=== PATIENT | male | born 1940 | race Hispanic/Latino ===

== ENCOUNTER 2016-06-26 19:17 | Inpatient (IN) | payer OTHER ==
[~2016-06-26] VITALS: Ht 170.2 cm; Wt 63.0 kg
[~2016-06-26 19:17] MED LIST: HYDROCHLOROTHIA25 MG PO; LOSARTAN POTASS25 MG PO; NORCO 5/3251 TABLET PO
[2016-06-26 19:41] LABS: HEMATOCRIT 34.2 % (38.0-50.0); MCV 90.7 FL (86-99); MEAN PLAT.VOLUME 8.3 uM^3 (9.0-12.4); PLATELET COUNT 300 K/uL (156-360); RBC DIS.WIDTH-CV 12.9 % (11.8-14.6); RBC DIS.WIDTH-SD 41.8 % (39-53); RED BLOOD COUNT 3.77 M/uL (4.00-5.50); WHITE BLOOD COUNT 9.9 K/uL (4.1-10.2)
[2016-06-26 19:43] LABS: EOSINOPHIL (%) 7.4 % (0-5); EOSINOPHIL COUNT 0.7 K/uL (0-0.3); IMMATURE GRANULOCYTE (%) 0.2 % (0.0-0.7); IMMATURE GRANULOCYTE COUNT 0.2 K/uL; LYMPHOCYTE COUNT 3.5 K/uL (1.0-2.8); MONOCYTE (%) 6.8 % (3-12); MONOCYTE COUNT 0.7 K/uL (0-0.8); NEUTROPHIL (%) 49.5 % (45-76); NEUTROPHIL COUNT 4.9 K/uL (1.8-6.4)
[2016-06-26 19:49] LABS: AMYLASE 263 IU/L (1-118); CHLORIDE 100 mEq/L (99-109); POTASSIUM 3.7 mEq/L (3.7-5.4); SODIUM 137 mEq/L (136-147)
[2016-06-26 19:51] LABS: GLUCOSE 112 mg/dL (70-99)
[2016-06-26 19:52] LABS: PROTHROMBIN TIME 10.5 (9.2-11.2); PTT 32.2 (25-32)
[2016-06-26 19:52] LABS: ANION GAP 12 MEQ/L (2-14)
[2016-06-26 19:54] LABS: SERUM ETHYL ALCOHOL < 10 mg/dL
[2016-06-26 19:55] LABS: GFR ESTIMATE (CALCULATED) 24 mL/min/
[2016-06-26 19:56] LABS: UREA NITROGEN (BUN) 38 mg/dL (9-23)
[2016-06-26 19:58] LABS: LIPASE 62 U/L (1.0-51.0)
[2016-06-26 20:00] LABS: TROP-I INTERPRETATION NEGATIVE; TROPONIN-I 0.02 ng/mL (0.0-0.30)
[2016-06-26 22:32] VITALS: BP 154/112
[2016-06-26 22:42] VITALS: BP 176/128
[2016-06-26 23:00] VITALS: BP 182/122
[2016-06-27] VITALS (24 sets, daily range): BP systolic 117–174; BP diastolic 78–113
[2016-06-27 00:59] LABS: METH RESISTANT S AUREUS PCR NEGATIVE (NEGATIVE)
[2016-06-27 01:05] LABS: PROBE CHECK PASS; SPECIMEN PROCESSING CONTROL PASS
[2016-06-27 07:46] LABS: EOSINOPHIL (%) 0.3 % (0-5); HEMATOCRIT 26.4 % (38.0-50.0); IMMATURE GRANULOCYTE (%) 0.2 % (0.0-0.7); LYMPHOCYTE COUNT 1.3 K/uL (1.0-2.8); MCH 29.2 PG (29.0-34.0); MCHC 32.6 G/DL (30.0-36.0); MCV 89.5 FL (86-99); MEAN PLAT.VOLUME 8.9 uM^3 (9.0-12.4); MONOCYTE (%) 6.9 % (3-12); MONOCYTE COUNT 0.7 K/uL (0-0.8); NEUTROPHIL COUNT 7.7 K/uL (1.8-6.4); PLATELET COUNT 228 K/uL (156-360); RBC DIS.WIDTH-CV 13.1 % (11.8-14.6); RBC DIS.WIDTH-SD 42.4 % (39-53); RED BLOOD COUNT 2.95 M/uL (4.00-5.50); WHITE BLOOD COUNT 9.8 K/uL (4.1-10.2)
[2016-06-27 07:57] LABS: CREATINE KINASE 431 IU/L (1-294); TOTAL CK 431 IU/L (1-294)
[2016-06-27 07:58] LABS: ANION GAP 8 MEQ/L (2-14); CHLORIDE 102 MEQ/L (99-109); GFR ESTIMATE (CALCULATED) 26 mL/min/; GLUCOSE 98 mg/dL (70-99); HDL CHOLESTEROL 44 MG/DL (Desirable>=40); LDL CHOLESTEROL 157 mg/dL (Desirable<100); NON-HDL CHOLESTEROL 180 mg/dL (Desirable<160); SAMPLE HEMOLYSIS CHECK 0; SAMPLE ICTERIC CHECK 0; SAMPLE LIPEMIA CHECK 0; SODIUM 132 MEQ/L (136-147); TOTAL CHOLESTEROL 224 mg/dL (Desirable<200); TRIGLYCERIDES 116 MG/DL (Normal: <150); UREA NITROGEN (BUN) 31 mg/dL (9-23)
[2016-06-27 08:01] LABS: TROP-I INTERPRETATION POSITIVE
[2016-06-27 08:07] LABS: POTASSIUM 4.5 MEQ/L (3.7-5.4)
[2016-06-27 08:17] LABS: TROPONIN-I 15.12 ng/mL (0.0-0.30)
[2016-06-27 08:27] LABS: Estimated Average Glucose 123 mg/dL (70-123); HEMOGLOBIN A1c (GLYCOHEMOGLOB) 5.9 % HGB (Below 5.7)
[2016-06-27 08:51] LABS: CK-MB 59.6 ng/mL (0.0-4.9)
[2016-06-27 19:14] LABS: TROP-I INTERPRETATION POSITIVE
[2016-06-27 19:19] LABS: TROPONIN-I 42.05 ng/mL (0.0-0.30)
[2016-06-27 19:28] LABS: TOTAL CK 1131 IU/L (1-294)
[2016-06-27 19:33] LABS: CREATINE KINASE 1131 IU/L (1-294)
[2016-06-27 19:59] LABS: CK-MB 149.7 ng/mL (0.0-4.9)
[2016-06-28] VITALS (11 sets, daily range): BP systolic 120–139; BP diastolic 73–89
[2016-06-28 07:08] LABS: HEMATOCRIT 28.8 % (38.0-50.0); MCH 28.9 PG (29.0-34.0); MCV 87.5 FL (86-99); RBC DIS.WIDTH-CV 13.1 % (11.8-14.6); RBC DIS.WIDTH-SD 42.6 % (39-53); RED BLOOD COUNT 3.29 M/uL (4.00-5.50); WHITE BLOOD COUNT 12.7 K/uL (4.1-10.2)
[2016-06-28 07:28] LABS: TROP-I INTERPRETATION POSITIVE
[2016-06-28 07:30] LABS: CREATINE KINASE 886 IU/L (1-294); TOTAL CK 886 IU/L (1-294)
[2016-06-28 07:31] LABS: TROPONIN-I 33.99 ng/mL (0.0-0.30)
[2016-06-28 07:32] LABS: CK-MB 131.8 ng/mL (0.0-4.9)
[2016-06-28 07:40] LABS: ANION GAP 11 MEQ/L (2-14); CHLORIDE 103 MEQ/L (99-109); GFR ESTIMATE (CALCULATED) 26 mL/min/; GLUCOSE 96 mg/dL (70-99); POTASSIUM 4.2 MEQ/L (3.7-5.4); SAMPLE HEMOLYSIS CHECK 0; SAMPLE ICTERIC CHECK 0; SAMPLE LIPEMIA CHECK 0; SODIUM 135 MEQ/L (136-147); UREA NITROGEN (BUN) 28 mg/dL (9-23)
[2016-06-28 07:44] LABS: PLATELET COUNT UNABLE TO REPORT K/uL (156-360)
[2016-06-28 19:11] LABS: TROP-I INTERPRETATION POSITIVE
[2016-06-28 19:13] LABS: CK-MB 79.5 ng/mL (0.0-4.9); TROPONIN-I 29.23 ng/mL (0.0-0.30)
[2016-06-28 19:31] LABS: CREATINE KINASE 720 IU/L (1-294); TOTAL CK 720 IU/L (1-294)
[2016-06-29] VITALS: BP 117/82
[2016-06-29 04:00] VITALS: BP 122/74
[2016-06-29 06:00] VITALS: BP 122/69
[2016-06-29 06:10] LABS: HEMATOCRIT 30.3 % (38.0-50.0); MCH 30.2 PG (29.0-34.0); MCV 88.9 FL (86-99); RBC DIS.WIDTH-SD 41.9 % (39-53); RED BLOOD COUNT 3.41 M/uL (4.00-5.50); WHITE BLOOD COUNT 10.4 K/uL (4.1-10.2)
[2016-06-29 06:31] LABS: ANION GAP 9 MEQ/L (2-14); CHLORIDE 103 MEQ/L (99-109); GFR ESTIMATE (CALCULATED) 26 mL/min/; GLUCOSE 90 mg/dL (70-99); POTASSIUM 4.3 MEQ/L (3.7-5.4); SAMPLE HEMOLYSIS CHECK 2; SAMPLE ICTERIC CHECK 0; SAMPLE LIPEMIA CHECK 0; SODIUM 134 MEQ/L (136-147); UREA NITROGEN (BUN) 29 mg/dL (9-23)
[2016-06-29 06:48] LABS: MEAN PLAT.VOLUME 9.4 uM^3 (9.0-12.4); PLATELET COUNT 244 K/uL (156-360)
[2016-06-29 08:00] VITALS: BP 115/58
[2016-06-29 12:00] VITALS: BP 119/75
[2016-06-29 16:00] VITALS: BP 130/84
[2016-06-30] VITALS (7 sets, daily range): BP systolic 93–144; BP diastolic 62–91
[2016-06-30 08:26] LABS: MCH 28.8 PG (29.0-34.0); MCHC 32.5 G/DL (30.0-36.0); MCV 88.6 FL (86-99); PLATELET COUNT 252 K/uL (156-360); RBC DIS.WIDTH-CV 13.2 % (11.8-14.6); RBC DIS.WIDTH-SD 42.8 % (39-53); RED BLOOD COUNT 3.16 M/uL (4.00-5.50); WHITE BLOOD COUNT 8.8 K/uL (4.1-10.2)
[2016-06-30 08:43] LABS: ALKALINE PHOSPHATASE 45 IU/L (3-129); ANION GAP 9 MEQ/L (2-14); CHLORIDE 104 MEQ/L (99-109); GFR ESTIMATE (CALCULATED) 24 mL/min/; GLUCOSE 92 mg/dL (70-99); SAMPLE HEMOLYSIS CHECK 0; SAMPLE ICTERIC CHECK 0; SAMPLE LIPEMIA CHECK 0; SODIUM 136 MEQ/L (136-147); TOTAL BILIRUBIN 0.3 MG/DL (0.0-1.0); UREA NITROGEN (BUN) 31 mg/dL (9-23)
[2016-07-01] VITALS (7 sets, daily range): BP systolic 119–148; BP diastolic 69–74
[2016-07-01 07:07] LABS: HEMATOCRIT 25.6 % (38.0-50.0); MCH 30.2 PG (29.0-34.0); MCHC 33.6 G/DL (30.0-36.0); MCV 89.8 FL (86-99); MEAN PLAT.VOLUME 9.2 uM^3 (9.0-12.4); PLATELET COUNT 227 K/uL (156-360); RBC DIS.WIDTH-CV 13.3 % (11.8-14.6); RBC DIS.WIDTH-SD 43.7 % (39-53); RED BLOOD COUNT 2.85 M/uL (4.00-5.50); WHITE BLOOD COUNT 9.3 K/uL (4.1-10.2)
[2016-07-01 07:20] LABS: EOSINOPHIL (%) 8.8 % (0-5); EOSINOPHIL COUNT 0.8 K/uL (0-0.3); IMMATURE GRANULOCYTE (%) 0.4 % (0.0-0.7); LYMPHOCYTE COUNT 2.2 K/uL (1.0-2.8); MONOCYTE (%) 6.9 % (3-12); MONOCYTE COUNT 0.6 K/uL (0-0.8); NEUTROPHIL (%) 60.5 % (45-76); NEUTROPHIL COUNT 5.6 K/uL (1.8-6.4)
[2016-07-01 07:33] LABS: ANION GAP 9 MEQ/L (2-14); CHLORIDE 104 MEQ/L (99-109); GFR ESTIMATE (CALCULATED) 23 mL/min/; GLUCOSE 88 mg/dL (70-99); POTASSIUM 3.9 MEQ/L (3.7-5.4); SAMPLE HEMOLYSIS CHECK 0; SAMPLE ICTERIC CHECK 0; SAMPLE LIPEMIA CHECK 0; SODIUM 135 MEQ/L (136-147); UREA NITROGEN (BUN) 36 mg/dL (9-23)
[2016-07-01 21:58] LABS: ADD MIUA? YES; BILIRUBIN NEGATIVE; BLOOD MODERATE; COLOR YELLOW ((YELLOW)); GLUCOSE (STRIP) NEGATIVE; KETONES NEGATIVE; LEUKOCYTES LARGE; NITRITE NEGATIVE; PROTEIN (STRIP) 100; SPECIFIC GRAVITY 1.012 (1.000-1.030); UROBILINOGEN 0.2 MG/DL (0.2-1.0)
[2016-07-01 22:18] LABS: BACTERIA RARE /HPF; EPITHELIAL CELLS RARE /HPF; MUCUS NONE SEEN /LPF; RED BLOOD CELLS TNTC /HPF (0-5); UCUL ADDED? YES; WHITE BLOOD CELLS TNTC /HPF (0-5); WHITE BLOOD CELLS CLUMP MANY /HPF (0-5)
[2016-07-02 04:25] VITALS: BP 123/60
[2016-07-02 06:36] LABS: EOSINOPHIL (%) 6.6 % (0-5); EOSINOPHIL COUNT 0.6 K/uL (0-0.3); HEMATOCRIT 25.4 % (38.0-50.0); IMMATURE GRANULOCYTE (%) 0.3 % (0.0-0.7); LYMPHOCYTE COUNT 1.8 K/uL (1.0-2.8); MCH 28.6 PG (29.0-34.0); MCHC 31.9 G/DL (30.0-36.0); MCV 89.8 FL (86-99); MEAN PLAT.VOLUME 8.7 uM^3 (9.0-12.4); MONOCYTE (%) 7.9 % (3-12); MONOCYTE COUNT 0.7 K/uL (0-0.8); NEUTROPHIL (%) 65.7 % (45-76); NEUTROPHIL COUNT 6.1 K/uL (1.8-6.4); PLATELET COUNT 227 K/uL (156-360); RBC DIS.WIDTH-CV 13.2 % (11.8-14.6); RBC DIS.WIDTH-SD 43.3 % (39-53); RED BLOOD COUNT 2.83 M/uL (4.00-5.50); WHITE BLOOD COUNT 9.3 K/uL (4.1-10.2)
[2016-07-02 07:01] LABS: ANION GAP 9 MEQ/L (2-14); CHLORIDE 105 MEQ/L (99-109); GFR ESTIMATE (CALCULATED) 24 mL/min/; GLUCOSE 89 mg/dL (70-99); POTASSIUM 3.7 MEQ/L (3.7-5.4); SAMPLE HEMOLYSIS CHECK 0; SAMPLE ICTERIC CHECK 0; SAMPLE LIPEMIA CHECK 0; SODIUM 136 MEQ/L (136-147); UREA NITROGEN (BUN) 33 mg/dL (9-23)
[2016-07-02 08:40] VITALS: BP 168/82
[2016-07-02 13:19] VITALS: BP 133/88
[2016-07-02 16:29] VITALS: BP 123/72
[2016-07-02 19:38] VITALS: BP 144/79
[2016-07-02 23:16] VITALS: BP 90/52
[2016-07-03 07:17] VITALS: BP 155/83
[2016-07-03 12:15] VITALS: BP 122/64
[2016-07-03 16:00] VITALS: BP 134/84
[2016-07-03 20:00] VITALS: BP 135/71
[2016-07-03 21:40] VITALS: BP 142/82
[2016-07-03 22:32] VITALS: BP 142/82
[2016-07-04 04:08] VITALS: BP 130/77
[2016-07-04 07:14] LABS: HEMATOCRIT 25.9 % (38.0-50.0); MCH 28.4 PG (29.0-34.0); MCHC 31.7 G/DL (30.0-36.0); MCV 89.6 FL (86-99); PLATELET COUNT 266 K/uL (156-360); RBC DIS.WIDTH-CV 13.3 % (11.8-14.6); RBC DIS.WIDTH-SD 43.5 % (39-53); RED BLOOD COUNT 2.89 M/uL (4.00-5.50); WHITE BLOOD COUNT 8.7 K/uL (4.1-10.2)
[2016-07-04 07:32] LABS: EOSINOPHIL (%) 8.9 % (0-5); EOSINOPHIL COUNT 0.8 K/uL (0-0.3); IMMATURE GRANULOCYTE (%) 0.5 % (0.0-0.7); MONOCYTE (%) 9.1 % (3-12); MONOCYTE COUNT 0.8 K/uL (0-0.8); NEUTROPHIL (%) 57.8 % (45-76)
[2016-07-04 07:40] VITALS: BP 133/69
[2016-07-04 07:53] LABS: ANION GAP 9 MEQ/L (2-14); CHLORIDE 106 MEQ/L (99-109); GFR ESTIMATE (CALCULATED) 23 mL/min/; GLUCOSE 85 mg/dL (70-99); POTASSIUM 4.3 MEQ/L (3.7-5.4); SAMPLE HEMOLYSIS CHECK 0; SAMPLE ICTERIC CHECK 0; SAMPLE LIPEMIA CHECK 0; SODIUM 137 MEQ/L (136-147); UREA NITROGEN (BUN) 39 mg/dL (9-23)
[2016-07-04 10:51] VITALS: BP 140/96
[2016-07-04] MEDS ORDERED: DOCUSATE SODIU100 MG PO (13:20)
[2016-07-04] MEDS ORDERED: ASPIRIN EC325 MG PO (13:20)
[2016-07-04] MEDS ORDERED: AMLODIPINE BESYL5 MG PO (13:20)
[2016-07-04] MEDS ORDERED: LOPRESSOR25 MG PO (13:20)
[2016-07-04] MEDS ORDERED: CLOPIDOGREL75 MG PO (13:20)
[2016-07-04] MEDS ORDERED: NITROSTAT0.4 MG SL (13:20)
[2016-07-04] MEDS ORDERED: ATORVASTATIN CA40 MG PO (13:20)
[2016-07-04 14:48] VITALS: BP 149/84
== END 2016-07-04 17:16 | DRG 247 ==
LOC: EME → EDBD 19:17 → EME 19:49 → CATH 19:49 → 5SOUTH 19:50 → 4EAST 19:50 → 4WEST 19:50 → 4EAST 06-30 15:44 → 5SOUTH 07-03 21:40
PROVIDERS: Emergency Medicine; Hospitalist; Internal Medicine; Internal Medicine Cardiovascular Disease; Internal Medicine Interventional Cardiology; Surgery
DX: I21.19 ST elevation (STEMI) myocardial infarction involving other coronary artery of inferior wall (principal); T81.718A Complication of other artery following a procedure, not elsewhere classified, initial encounter; I97.630 Postprocedural hematoma of a circulatory system organ or structure following a cardiac catheterization; I77.0 Arteriovenous fistula, acquired; Y84.0 Cardiac catheterization as the cause of abnormal reaction of the patient, or of later complication, without mention of misadventure at the time of the procedure; I16.9 Hypertensive crisis, unspecified; I42.9 Cardiomyopathy, unspecified; N17.9 Acute kidney failure, unspecified; I25.10 Atherosclerotic heart disease of native coronary artery without angina pectoris; I77.1 Stricture of artery; R33.9 Retention of urine, unspecified; I12.9 Hypertensive chronic kidney disease with stage 1 through stage 4 chronic kidney disease, or unspecified chronic kidney disease; N18.4 Chronic kidney disease, stage 4 (severe); G30.9 Alzheimer's disease, unspecified; F02.80 Dementia in other diseases classified elsewhere, unspecified severity, without behavioral disturbance, psychotic disturbance, mood disturbance, and anxiety; D64.9 Anemia, unspecified; E03.9 Hypothyroidism, unspecified; R73.02 Impaired glucose tolerance (oral); R74.8 Abnormal levels of other serum enzymes; E78.5 Hyperlipidemia, unspecified; F10.21 Alcohol dependence, in remission; Z87.891 Personal history of nicotine dependence
CPT/HCPCS: 71010; 80048; 80053; 80061; 81003; 82150; 82550; 82550 91; 82553; 83036; 83690; 84484; 85025; 85027; 85347; 85610; 85730; 86850; 86900; 86901; 87086; 87641; 93005; 93306; 93926; 94799; 97530 GO; 97530 GP; 99281; 99285; C1725; C1760; C1769; C1874; C1887; C1894; G0008; G0480; J0153; J0360; J0696; J1170; J1644; J2250; J2270; J2405; J3010; J3246; J7030; J7050; J7608

== ENCOUNTER 2016-07-10 21:53 | Inpatient (IN) | payer OTHER ==
[~2016-07-10 21:53] MED LIST changes: +AMLODIPINE BESYL5 MG PO; +ASPIRIN EC325 MG PO; +ATORVASTATIN CA40 MG PO; +CLOPIDOGREL75 MG PO; +DOCUSATE SODIU100 MG PO; +LOPRESSOR25 MG PO; +NITROSTAT0.4 MG SL
[2016-07-10 22:44] LABS: EOSINOPHIL (%) 4.7 % (0-5); EOSINOPHIL COUNT 0.7 K/uL (0-0.3); HEMATOCRIT 24.9 % (38.0-50.0); IMMATURE GRANULOCYTE (%) 0.5 % (0.0-0.7); IMMATURE GRANULOCYTE COUNT 0.1 K/uL; INSTRUMENT ABS NEUTROPHIL CT 12.8 K/uL; LYMPHOCYTE COUNT 0.5 K/uL (1.0-2.8); MCH 29.6 PG (29.0-34.0); MCHC 32.1 G/DL (30.0-36.0); MCV 92.2 FL (86-99); MEAN PLAT.VOLUME 8.6 uM^3 (9.0-12.4); MONOCYTE (%) 0.4 % (3-12); MONOCYTE COUNT 0.1 K/uL (0-0.8); NEUTROPHIL (%) 90.7 % (45-76); NEUTROPHIL COUNT 12.8 K/uL (1.8-6.4); PLATELET COUNT 243 K/uL (156-360); RBC DIS.WIDTH-CV 12.7 % (11.8-14.6); RBC DIS.WIDTH-SD 42.1 % (39-53)
[2016-07-10 22:46] LABS: WHITE BLOOD COUNT 14.2 K/uL (4.1-10.2)
[2016-07-10 23:02] LABS: CHLORIDE 104 mEq/L (99-109); POTASSIUM 4.8 mEq/L (3.7-5.4); SODIUM 137 mEq/L (136-147)
[2016-07-10 23:04] LABS: GLUCOSE 87 mg/dL (70-99)
[2016-07-10 23:05] LABS: ANION GAP 10 MEQ/L (2-14)
[2016-07-10 23:06] LABS: TOTAL BILIRUBIN 0.3 mg/dL (0.0-1.0)
[2016-07-10 23:07] LABS: ALKALINE PHOSPHATASE 72 IU/L (3-129)
[2016-07-10 23:08] LABS: GFR ESTIMATE (CALCULATED) 22 mL/min/
[2016-07-10 23:09] LABS: UREA NITROGEN (BUN) 33 mg/dL (9-23)
[2016-07-10 23:34] LABS: TROPONIN-I 0.68 ng/mL (0.0-0.30)
[2016-07-10 23:35] LABS: TROP-I INTERPRETATION POSITIVE
[2016-07-11] MEDS ORDERED: NORVASC5 MG PO (01:58)
[2016-07-11] MEDS ORDERED: ASPIRIN EC325 MG PO (01:59)
[2016-07-11] MEDS ORDERED: FLOMAX0.4 MG PO (02:00)
[2016-07-11] MEDS ORDERED: PLAVIX75 MG PO (02:00)
[2016-07-11] MEDS ORDERED: ASCORBIC ACID500 MG PO (02:01)
[2016-07-11] MEDS ORDERED: DULCOLAX10 MG PR (02:03)
[2016-07-11] MEDS ORDERED: MIRALAX17 GM PO (02:04)
[2016-07-11] MEDS ORDERED: MILK OF MAGN PO (02:04)
[2016-07-11 02:35] LABS: ADD MIUA? YES; BILIRUBIN NEGATIVE; BLOOD MODERATE; COLOR YELLOW ((YELLOW)); GLUCOSE (STRIP) NEGATIVE; KETONES NEGATIVE; LEUKOCYTES LARGE; NITRITE NEGATIVE; PROTEIN (STRIP) 100; UROBILINOGEN 0.2 MG/DL (0.2-1.0)
[2016-07-11 03:09] LABS: BACTERIA RARE /HPF; EPITHELIAL CELLS NONE SEEN /HPF; MUCUS NONE SEEN /LPF; RED BLOOD CELLS 0-5 /HPF (0-5); UCUL ADDED? YES; UNCLASSIFIED CRYSTALS 1+ /HPF; WHITE BLOOD CELLS TNTC /HPF (0-5)
[2016-07-11 03:12] LABS: INFLUENZA A VIRAL ANTIGEN NEGATIVE; INFLUENZA B VIRAL ANTIGEN NEGATIVE
[2016-07-11 04:26] LABS: AMYLASE 276 IU/L (1-118)
[2016-07-11 04:30] LABS: INTER. NORMALIZED RATIO 1.1; PROTHROMBIN TIME 11.4 (9.2-11.2); PTT 27.8 (25-32)
[2016-07-11 04:31] LABS: SERUM ETHYL ALCOHOL < 10 mg/dL
[2016-07-11 04:34] LABS: LIPASE 44 U/L (1.0-51.0)
[2016-07-11 04:35] LABS: EOSINOPHIL (%) 2.5 % (0-5); EOSINOPHIL COUNT 0.1 K/uL (0-0.3); HEMATOCRIT 24.6 % (38.0-50.0); IMMATURE GRANULOCYTE (%) 0.2 % (0.0-0.7); INSTRUMENT ABS NEUTROPHIL CT 4.4 K/uL; LYMPHOCYTE COUNT 0.3 K/uL (1.0-2.8); MCH 29.6 PG (29.0-34.0); MCHC 32.1 G/DL (30.0-36.0); MCV 92.1 FL (86-99); MEAN PLAT.VOLUME 8.9 uM^3 (9.0-12.4); MONOCYTE (%) 0.2 % (3-12); NEUTROPHIL (%) 91.1 % (45-76); NEUTROPHIL COUNT 4.4 K/uL (1.8-6.4); PLATELET COUNT 238 K/uL (156-360); RBC DIS.WIDTH-CV 12.8 % (11.8-14.6); RBC DIS.WIDTH-SD 42.5 % (39-53); RED BLOOD COUNT 2.67 M/uL (4.00-5.50)
[2016-07-11 04:38] LABS: WHITE BLOOD COUNT 4.8 K/uL (4.1-10.2)
[2016-07-11 04:42] LABS: TROP-I INTERPRETATION POSITIVE; TROPONIN-I 0.66 ng/mL (0.0-0.30)
[2016-07-11 05:16] LABS: HDL CHOLESTEROL 31 MG/DL (Desirable>=40); LDL CHOLESTEROL 75 mg/dL (Desirable<100); NON-HDL CHOLESTEROL 87 mg/dL (Desirable<160); TOTAL CHOLESTEROL 118 mg/dL (Desirable<200); TRIGLYCERIDES 60 MG/DL (Normal: <150)
[2016-07-11 06:27] LABS: TROP-I INTERPRETATION POSITIVE
[2016-07-11 07:11] LABS: Estimated Average Glucose 126 mg/dL (70-123)
[2016-07-11 11:40] VITALS: BP 93/54
[2016-07-11 11:55] LABS: AMPHETAMINE NEGATIVE (500 ng/mL); BARBITURATES NEGATIVE (200 ng/mL); BENZODIAZEPINES NEGATIVE (150 ng/mL); COCAINE NEGATIVE (150 ng/mL); METHADONE NEGATIVE (200 ng/mL); METHAMPHETAMINE NEGATIVE (500 ng/mL); OPIATES (MORPHINE) NEGATIVE (100 ng/mL); OXYCODONE NEGATIVE (100 ng/mL); PHENCYCLIDINE NEGATIVE (25 ng/mL); PROPOXYPHENE NEGATIVE (300 ng/mL); THC CANNABINOIDS NEGATIVE (50 ng/mL); TRICYCLIC ANTIDEPRESSANTS NEGATIVE (300 ng/mL)
[2016-07-11 11:56] LABS: INTERNAL CONTROLS VALID? YES
[2016-07-11 13:07] LABS: TROP-I INTERPRETATION POSITIVE
[2016-07-11 20:00] VITALS: BP 110/61
[2016-07-12] VITALS (7 sets, daily range): BP systolic 100–155; BP diastolic 58–84
[2016-07-12 07:04] LABS: ANION GAP 8 MEQ/L (2-14); CHLORIDE 104 MEQ/L (99-109); GFR ESTIMATE (CALCULATED) 21 mL/min/; GLUCOSE 93 mg/dL (70-99); POTASSIUM 4.6 MEQ/L (3.7-5.4); SAMPLE HEMOLYSIS CHECK 0; SAMPLE ICTERIC CHECK 0; SAMPLE LIPEMIA CHECK 0; SODIUM 137 MEQ/L (136-147); UREA NITROGEN (BUN) 38 mg/dL (9-23)
[2016-07-12 07:38] LABS: HEMATOCRIT 22.5 % (38.0-50.0); MCH 29.5 PG (29.0-34.0); MCV 92.2 FL (86-99); MEAN PLAT.VOLUME 8.8 uM^3 (9.0-12.4); PLATELET COUNT 187 K/uL (156-360); RBC DIS.WIDTH-CV 12.9 % (11.8-14.6); RBC DIS.WIDTH-SD 42.5 % (39-53); RED BLOOD COUNT 2.44 M/uL (4.00-5.50)
[2016-07-12 07:40] LABS: WHITE BLOOD COUNT 12.9 K/uL (4.1-10.2)
[2016-07-13 04:00] VITALS: BP 118/62
[2016-07-13 08:55] VITALS: BP 127/69
[2016-07-13 10:54] LABS: EOSINOPHIL (%) 14.5 % (0-5); EOSINOPHIL COUNT 1.6 K/uL (0-0.3); HEMATOCRIT 25.2 % (38.0-50.0); IMMATURE GRANULOCYTE (%) 0.6 % (0.0-0.7); IMMATURE GRANULOCYTE COUNT 0.1 K/uL; LYMPHOCYTE COUNT 1.4 K/uL (1.0-2.8); MCH 29.9 PG (29.0-34.0); MCHC 32.1 G/DL (30.0-36.0); MEAN PLAT.VOLUME 9.4 uM^3 (9.0-12.4); MONOCYTE (%) 6.3 % (3-12); MONOCYTE COUNT 0.7 K/uL (0-0.8); PLATELET COUNT 227 K/uL (156-360); RBC DIS.WIDTH-CV 13.1 % (11.8-14.6); RBC DIS.WIDTH-SD 44.1 % (39-53); RED BLOOD COUNT 2.71 M/uL (4.00-5.50); WHITE BLOOD COUNT 10.7 K/uL (4.1-10.2)
[2016-07-13 11:06] VITALS: BP 143/84
[2016-07-13 14:45] VITALS: BP 123/79
[2016-07-13 19:27] VITALS: BP 144/77
[2016-07-13 23:50] VITALS: BP 135/77
[2016-07-14 03:59] VITALS: BP 133/75
[2016-07-14 07:42] LABS: ANION GAP 11 MEQ/L (2-14); CHLORIDE 103 MEQ/L (99-109); GFR ESTIMATE (CALCULATED) 24 mL/min/; GLUCOSE 89 mg/dL (70-99); POTASSIUM 4.1 MEQ/L (3.7-5.4); SAMPLE HEMOLYSIS CHECK 0; SAMPLE ICTERIC CHECK 0; SAMPLE LIPEMIA CHECK 0; SODIUM 139 MEQ/L (136-147); UREA NITROGEN (BUN) 34 mg/dL (9-23)
[2016-07-14 07:43] VITALS: BP 110/61
[2016-07-14 11:17] VITALS: BP 129/72
[2016-07-14] MEDS ORDERED: CIPRO500 MG PO (12:02)
[2016-07-14] MEDS ORDERED: SYNTHROID88 MCG PO (12:02)
[2016-07-14 15:21] VITALS: BP 128/76
[2016-07-14 19:40] VITALS: BP 133/79
[2016-07-15 00:04] VITALS: BP 127/80
[2016-07-15 04:06] VITALS: BP 130/75
[2016-07-15 07:01] LABS: HEMATOCRIT 23.9 % (38.0-50.0); MCH 29.6 PG (29.0-34.0); MCHC 32.2 G/DL (30.0-36.0); MCV 91.9 FL (86-99); MEAN PLAT.VOLUME 9.4 uM^3 (9.0-12.4); PLATELET COUNT 210 K/uL (156-360); RBC DIS.WIDTH-SD 42.7 % (39-53); WHITE BLOOD COUNT 7.8 K/uL (4.1-10.2)
[2016-07-15 07:20] LABS: ANION GAP 10 MEQ/L (2-14); CHLORIDE 101 MEQ/L (99-109); GFR ESTIMATE (CALCULATED) 25 mL/min/; GLUCOSE 90 mg/dL (70-99); POTASSIUM 4.2 MEQ/L (3.7-5.4); SAMPLE HEMOLYSIS CHECK 0; SAMPLE ICTERIC CHECK 0; SAMPLE LIPEMIA CHECK 0; SODIUM 137 MEQ/L (136-147); UREA NITROGEN (BUN) 30 mg/dL (9-23)
[2016-07-15 07:36] VITALS: BP 119/69
[2016-07-15 09:58] LABS: IRON 81 MCG/DL (35-150)
[2016-07-15 10:16] LABS: FERRITIN 89 NG/ML (22-322)
[2016-07-15 11:15] VITALS: BP 133/75
[2016-07-15 15:31] VITALS: BP 133/79
[2016-07-15 19:43] VITALS: BP 134/86
[2016-07-16] VITALS: BP 151/79
[2016-07-16 04:00] VITALS: BP 145/82
[2016-07-16 07:05] LABS: EOSINOPHIL (%) 12.3 % (0-5); EOSINOPHIL COUNT 1.2 K/uL (0-0.3); HEMATOCRIT 24.2 % (38.0-50.0); IMMATURE GRANULOCYTE (%) 1.1 % (0.0-0.7); IMMATURE GRANULOCYTE COUNT 0.1 K/uL; INSTRUMENT ABS NEUTROPHIL CT 5.1 K/uL; LYMPHOCYTE COUNT 2.5 K/uL (1.0-2.8); MCH 29.2 PG (29.0-34.0); MCHC 31.8 G/DL (30.0-36.0); MCV 91.7 FL (86-99); MEAN PLAT.VOLUME 9.1 uM^3 (9.0-12.4); MONOCYTE (%) 6.8 % (3-12); MONOCYTE COUNT 0.7 K/uL (0-0.8); NEUTROPHIL (%) 53.3 % (45-76); NEUTROPHIL COUNT 5.1 K/uL (1.8-6.4); PLATELET COUNT 226 K/uL (156-360); RBC DIS.WIDTH-CV 13.1 % (11.8-14.6); RBC DIS.WIDTH-SD 42.6 % (39-53); RED BLOOD COUNT 2.64 M/uL (4.00-5.50); WHITE BLOOD COUNT 9.6 K/uL (4.1-10.2)
[2016-07-16 08:08] VITALS: BP 138/62
[2016-07-16 08:22] LABS: GFR ESTIMATE (CALCULATED) 22 mL/min/; GLUCOSE 98 mg/dL (70-99); SAMPLE HEMOLYSIS CHECK 0; SAMPLE ICTERIC CHECK 0; SAMPLE LIPEMIA CHECK 0; UREA NITROGEN (BUN) 27 mg/dL (9-23)
[2016-07-16 10:42] LABS: ANION GAP 10 MEQ/L (2-14); CHLORIDE 101 MEQ/L (99-109); POTASSIUM 4.4 MEQ/L (3.7-5.4); SODIUM 138 MEQ/L (136-147)
[2016-07-16 12:08] VITALS: BP 121/73
[2016-07-16 16:04] VITALS: BP 126/72
[2016-07-16 19:38] VITALS: BP 132/82
[2016-07-17 00:20] VITALS: BP 130/80
[2016-07-17 04:07] VITALS: BP 124/75
[2016-07-17 07:16] LABS: EOSINOPHIL (%) 10.9 % (0-5); HEMATOCRIT 25.7 % (38.0-50.0); IMMATURE GRANULOCYTE (%) 1.7 % (0.0-0.7); IMMATURE GRANULOCYTE COUNT 0.2 K/uL; INSTRUMENT ABS NEUTROPHIL CT 5.4 K/uL; LYMPHOCYTE COUNT 2.1 K/uL (1.0-2.8); MCHC 31.5 G/DL (30.0-36.0); MCV 92.1 FL (86-99); MEAN PLAT.VOLUME 9.4 uM^3 (9.0-12.4); MONOCYTE (%) 7.6 % (3-12); MONOCYTE COUNT 0.7 K/uL (0-0.8); NEUTROPHIL (%) 57.2 % (45-76); NEUTROPHIL COUNT 5.4 K/uL (1.8-6.4); PLATELET COUNT 261 K/uL (156-360); RBC DIS.WIDTH-SD 42.9 % (39-53); RED BLOOD COUNT 2.79 M/uL (4.00-5.50); WHITE BLOOD COUNT 9.5 K/uL (4.1-10.2)
[2016-07-17 07:28] LABS: ANION GAP 11 MEQ/L (2-14); CHLORIDE 103 MEQ/L (99-109); GFR ESTIMATE (CALCULATED) 20 mL/min/; GLUCOSE 82 mg/dL (70-99); POTASSIUM 4.5 MEQ/L (3.7-5.4); SAMPLE HEMOLYSIS CHECK 0; SAMPLE ICTERIC CHECK 0; SAMPLE LIPEMIA CHECK 0; SODIUM 140 MEQ/L (136-147); UREA NITROGEN (BUN) 26 mg/dL (9-23)
[2016-07-17 07:44] VITALS: BP 138/77
[2016-07-17 10:29] VITALS: BP 136/99
[2016-07-17 16:03] VITALS: BP 126/65
[2016-07-17 20:00] VITALS: BP 136/84
[2016-07-18] VITALS: BP 120/72
[2016-07-18 04:00] VITALS: BP 144/98
[2016-07-18 06:49] LABS: BASOPHIL COUNT 0.1 K/uL (0-0.1); EOSINOPHIL (%) 15.2 % (0-5); EOSINOPHIL COUNT 1.3 K/uL (0-0.3); HEMATOCRIT 24.1 % (38.0-50.0); IMMATURE GRANULOCYTE (%) 1.4 % (0.0-0.7); IMMATURE GRANULOCYTE COUNT 0.1 K/uL; INSTRUMENT ABS NEUTROPHIL CT 4.4 K/uL; MCH 29.2 PG (29.0-34.0); MCHC 31.5 G/DL (30.0-36.0); MCV 92.7 FL (86-99); MEAN PLAT.VOLUME 9.2 uM^3 (9.0-12.4); MONOCYTE (%) 8.9 % (3-12); MONOCYTE COUNT 0.8 K/uL (0-0.8); NEUTROPHIL (%) 50.7 % (45-76); NEUTROPHIL COUNT 4.4 K/uL (1.8-6.4); PLATELET COUNT 232 K/uL (156-360); RBC DIS.WIDTH-CV 13.2 % (11.8-14.6); RBC DIS.WIDTH-SD 44.3 % (39-53); WHITE BLOOD COUNT 8.6 K/uL (4.1-10.2)
[2016-07-18 07:13] LABS: ANION GAP 10 MEQ/L (2-14); CHLORIDE 104 MEQ/L (99-109); GFR ESTIMATE (CALCULATED) 23 mL/min/; GLUCOSE 91 mg/dL (70-99); POTASSIUM 4.2 MEQ/L (3.7-5.4); SAMPLE HEMOLYSIS CHECK 0; SAMPLE ICTERIC CHECK 0; SAMPLE LIPEMIA CHECK 0; SODIUM 137 MEQ/L (136-147); UREA NITROGEN (BUN) 25 mg/dL (9-23)
[2016-07-18 07:53] VITALS: BP 140/78
[2016-07-18 10:29] VITALS: BP 140/82
[2016-07-18 16:03] VITALS: BP 148/86
[2016-07-19] VITALS (7 sets, daily range): BP systolic 120–147; BP diastolic 64–77
[2016-07-19 07:52] LABS: BASOPHIL COUNT 0.1 K/uL (0-0.1); EOSINOPHIL (%) 15.1 % (0-5); EOSINOPHIL COUNT 1.3 K/uL (0-0.3); HEMATOCRIT 24.7 % (38.0-50.0); IMMATURE GRANULOCYTE (%) 1.2 % (0.0-0.7); IMMATURE GRANULOCYTE COUNT 0.1 K/uL; INSTRUMENT ABS NEUTROPHIL CT 4.4 K/uL; MCH 29.8 PG (29.0-34.0); MCV 93.2 FL (86-99); MEAN PLAT.VOLUME 9.4 uM^3 (9.0-12.4); MONOCYTE (%) 7.2 % (3-12); MONOCYTE COUNT 0.6 K/uL (0-0.8); NEUTROPHIL (%) 52.1 % (45-76); NEUTROPHIL COUNT 4.4 K/uL (1.8-6.4); PLATELET COUNT 254 K/uL (156-360); RBC DIS.WIDTH-CV 13.2 % (11.8-14.6); RBC DIS.WIDTH-SD 44.5 % (39-53); RED BLOOD COUNT 2.65 M/uL (4.00-5.50); WHITE BLOOD COUNT 8.4 K/uL (4.1-10.2)
[2016-07-19 08:14] LABS: ANION GAP 9 MEQ/L (2-14); CHLORIDE 105 MEQ/L (99-109); GFR ESTIMATE (CALCULATED) 24 mL/min/; GLUCOSE 85 mg/dL (70-99); POTASSIUM 4.4 MEQ/L (3.7-5.4); SAMPLE HEMOLYSIS CHECK 0; SAMPLE ICTERIC CHECK 0; SAMPLE LIPEMIA CHECK 0; SODIUM 137 MEQ/L (136-147); UREA NITROGEN (BUN) 21 mg/dL (9-23)
[2016-07-19] MEDS ORDERED: ASPIRIN EC325 MG PO (13:51)
[2016-07-19] MEDS ORDERED: CLOPIDOGREL75 MG PO (13:51)
[2016-07-19] MEDS ORDERED: SYNTHROID75 MCG PO (13:51)
[2016-07-19] MEDS ORDERED: TAMSULOSIN HCL0.4 MG PO (13:51)
[2016-07-19] MEDS ORDERED: CIPROFLOXACIN500 M1 PO (13:51)
[2016-07-19] MEDS ORDERED: FAMOTIDINE20 MG PO (13:51)
[2016-07-19 16:07] LABS: HEMATOCRIT 28.3 % (38.0-50.0); MCH 30.4 PG (29.0-34.0); MCHC 32.5 G/DL (30.0-36.0); MCV 93.4 FL (86-99); MEAN PLAT.VOLUME 8.9 uM^3 (9.0-12.4); PLATELET COUNT 248 K/uL (156-360); RBC DIS.WIDTH-CV 13.4 % (11.8-14.6); RBC DIS.WIDTH-SD 45.3 % (39-53); RED BLOOD COUNT 3.03 M/uL (4.00-5.50); WHITE BLOOD COUNT 8.6 K/uL (4.1-10.2)
== END 2016-07-19 18:56 | DRG 64 ==
LOC: EME → EDBD 21:53 → EDOF 07-11 02:27 → 5SOUTH 07-11 02:27 → 4EAST 07-11 02:27 → 5SOUTH 07-11 02:27 → EDOF 07-11 04:28 → 4EAST 07-11 11:34 → 5SOUTH 07-13 19:04
PROVIDERS: Emergency Medicine; Hospitalist; Internal Medicine
DX: I63.9 Cerebral infarction, unspecified (principal); A41.9 Sepsis, unspecified organism; G93.41 Metabolic encephalopathy; N39.0 Urinary tract infection, site not specified; N18.4 Chronic kidney disease, stage 4 (severe); I16.9 Hypertensive crisis, unspecified; B80 Enterobiasis; I25.10 Atherosclerotic heart disease of native coronary artery without angina pectoris; I77.1 Stricture of artery; F03.90 Unspecified dementia, unspecified severity, without behavioral disturbance, psychotic disturbance, mood disturbance, and anxiety; J40 Bronchitis, not specified as acute or chronic; D63.1 Anemia in chronic kidney disease; E78.5 Hyperlipidemia, unspecified; E05.90 Thyrotoxicosis, unspecified without thyrotoxic crisis or storm; I25.2 Old myocardial infarction; Z87.891 Personal history of nicotine dependence
CPT/HCPCS: 70450; 70544; 70547; 70551; 71020; 74000; 74230; 76770; 80048; 80053; 80061; 81003; 82150; 82272; 82607; 82728; 82746; 83036; 83540; 83605; 83690; 83880; 84439; 84443; 84466; 84484; 85025; 85025 91; 85027; 85610; 85730; 86850; 86900; 86901; 86920; 87040; 87077; 87086; 87186; 87502; 87801; 92523 GN; 92526 GN; 92610 GN; 92611 GN; 93005; 97530 GP; G0480; J0692; J0696; J1644; J7030; J7040; J7050; P9016

== ENCOUNTER 2016-08-19 10:50 | Emergency (ER) | payer OTHER ==
[~2016-08-19] VITALS: Ht 170.2 cm; Wt 62.7 kg
[~2016-08-19 10:50] MED LIST changes: +ASCORBIC ACID500 MG PO; +CIPRO500 MG PO; +CIPROFLOXACIN500 M1 PO; +DULCOLAX10 MG PR; +FAMOTIDINE20 MG PO; +FLOMAX0.4 MG PO; +MILK OF MAGN PO; +MIRALAX17 GM PO; +NORVASC5 MG PO; +PLAVIX75 MG PO; +SYNTHROID75 MCG PO; +SYNTHROID88 MCG PO; +TAMSULOSIN HCL0.4 MG PO
[2016-08-19 12:08] VITALS: BP 137/80
[2016-08-20] MEDS ORDERED: ASCORBIC ACID250 MG PO (10:49)
[2016-08-20] MEDS ORDERED: TRAMADOL HCL50 MG PO (10:50)
[2016-08-20] MEDS ORDERED: EPOGEN,PRO10000 UNIT SC (10:51)
[2016-08-20] MEDS ORDERED: LIDODERM 5% P1 PATCH TD (10:52)
[2016-08-20] MEDS ORDERED: ACETAMINOPHEN325 M1 PO (10:53)
[2016-08-20] MEDS ORDERED: [UNRECOGNIZED DRUG - OTHER] (10:55)
== END 2016-08-19 12:33 ==
LOC: EME 10:50
DX: Z46.6 Encounter for fitting and adjustment of urinary device (principal); N40.0 Benign prostatic hyperplasia without lower urinary tract symptoms; F03.90 Unspecified dementia, unspecified severity, without behavioral disturbance, psychotic disturbance, mood disturbance, and anxiety; I10 Essential (primary) hypertension; I25.2 Old myocardial infarction
CPT/HCPCS: 99281; 99284

== ENCOUNTER 2016-08-20 08:08 | Inpatient (IN) | payer OTHER ==
[~2016-08-20] VITALS: Ht 170.2 cm; Wt 60.5 kg
[2016-08-20 08:40] LABS: EOSINOPHIL (%) 0.8 % (0-5); HEMATOCRIT 26.6 % (38.0-50.0); IMMATURE GRANULOCYTE (%) 0.6 % (0.0-0.7); INSTRUMENT ABS NEUTROPHIL CT 4.3 K/uL; LYMPHOCYTE COUNT 0.4 K/uL (1.0-2.8); MCH 28.8 PG (29.0-34.0); MCHC 31.6 G/DL (30.0-36.0); MCV 91.1 FL (86-99); MEAN PLAT.VOLUME 8.9 uM^3 (9.0-12.4); MONOCYTE COUNT 0.1 K/uL (0-0.8); NEUTROPHIL (%) 89.9 % (45-76); NEUTROPHIL COUNT 4.3 K/uL (1.8-6.4); PLATELET COUNT 210 K/uL (156-360); RBC DIS.WIDTH-CV 13.5 % (11.8-14.6); RED BLOOD COUNT 2.92 M/uL (4.00-5.50); WHITE BLOOD COUNT 4.8 K/uL (4.1-10.2)
[2016-08-20 08:48] LABS: CHLORIDE 101 mEq/L (99-109); POTASSIUM 4.2 mEq/L (3.7-5.4); SODIUM 137 mEq/L (136-147)
[2016-08-20 08:49] LABS: GLUCOSE 92 mg/dL (70-99)
[2016-08-20 08:51] LABS: ANION GAP 14 MEQ/L (2-14)
[2016-08-20 08:53] LABS: GFR ESTIMATE (CALCULATED) 16 mL/min/
[2016-08-20 08:54] LABS: UREA NITROGEN (BUN) 52 mg/dL (9-23)
[2016-08-20 09:48] LABS: COLOR BROWN ((YELLOW)); GLUCOSE (STRIP) NEGATIVE; KETONES NEGATIVE; LEUKOCYTES LARGE; NITRITE NEGATIVE; PROTEIN (STRIP) 100; SPECIFIC GRAVITY 1.015 (1.000-1.030); UROBILINOGEN 0.2 MG/DL (0.2-1.0)
[2016-08-20 09:49] LABS: ADD MIUA? YES; BILIRUBIN NEGATIVE; BLOOD LARGE
[2016-08-20 10:28] LABS: UCUL ADDED? YES; WHITE BLOOD CELLS TNTC /HPF (0-5)
[2016-08-20] MEDS ORDERED: ASCORBIC ACID250 MG PO (10:49)
[2016-08-20] MEDS ORDERED: TRAMADOL HCL50 MG PO (10:50)
[2016-08-20] MEDS ORDERED: EPOGEN,PRO10000 UNIT SC (10:51)
[2016-08-20] MEDS ORDERED: LIDODERM 5% P1 PATCH TD (10:52)
[2016-08-20] MEDS ORDERED: ACETAMINOPHEN325 M1 PO (10:53)
[2016-08-20] MEDS ORDERED: [UNRECOGNIZED DRUG - OTHER] (10:55)
[2016-08-20 15:42] VITALS: BP 120/66
[2016-08-20 19:35] VITALS: BP 114/61
[2016-08-20 23:39] VITALS: BP 119/67
[2016-08-21] VITALS (10 sets, daily range): BP systolic 110–157; BP diastolic 64–97
[2016-08-21 06:47] LABS: HEMATOCRIT 20.8 % (38.0-50.0); MCH 29.3 PG (29.0-34.0); MCHC 31.7 G/DL (30.0-36.0); MCV 92.4 FL (86-99); MEAN PLAT.VOLUME 9.3 uM^3 (9.0-12.4); PLATELET COUNT 158 K/uL (156-360); RBC DIS.WIDTH-CV 13.9 % (11.8-14.6); RBC DIS.WIDTH-SD 46.4 % (39-53)
[2016-08-21 06:48] LABS: RED BLOOD COUNT 2.25 M/uL (4.00-5.50); WHITE BLOOD COUNT 19.2 K/uL (4.1-10.2)
[2016-08-21 07:12] LABS: ANION GAP 11 MEQ/L (2-14); CHLORIDE 104 MEQ/L (99-109); GFR ESTIMATE (CALCULATED) 16 mL/min/; GLUCOSE 76 mg/dL (70-99); POTASSIUM 4.4 MEQ/L (3.7-5.4); SAMPLE HEMOLYSIS CHECK 0; SAMPLE ICTERIC CHECK 0; SAMPLE LIPEMIA CHECK 0; SODIUM 137 MEQ/L (136-147); UREA NITROGEN (BUN) 59 mg/dL (9-23)
[2016-08-21 08:08] LABS: ABS NEUTROPHIL COUNT 15.2; ANISOCYTOSIS 1+; EOSINOPHIL ABS CT 0; HYPOCHROMASIA 1+; INSTRUMENT ABS NEUTROPHIL CT 15.9 K/uL; OVALOCYTES 1+; PLAT.SUFFICIENCY ADEQUATE
[2016-08-21 16:17] LABS: IRON < 10 MCG/DL (35-150)
[2016-08-21 16:30] LABS: URINE TOTAL PROTEIN 187 MG/DL (0-10)
[2016-08-22 00:31] VITALS: BP 152/92
[2016-08-22 04:00] VITALS: BP 115/70
[2016-08-22 07:35] LABS: HEMATOCRIT 29.4 % (38.0-50.0); MCH 29.3 PG (29.0-34.0); MCHC 33.3 G/DL (30.0-36.0); MEAN PLAT.VOLUME 10.2 uM^3 (9.0-12.4); RBC DIS.WIDTH-CV 14.5 % (11.8-14.6); RBC DIS.WIDTH-SD 46.2 % (39-53); WHITE BLOOD COUNT 23.5 K/uL (4.1-10.2)
[2016-08-22 07:36] LABS: MCV 87.8 FL (86-99); PLATELET COUNT 207 K/uL (156-360); RED BLOOD COUNT 3.35 M/uL (4.00-5.50)
[2016-08-22 07:42] VITALS: BP 121/72
[2016-08-22 09:14] LABS: INTACT PARATHYROID HORMONE 211 pg/mL (10-69)
[2016-08-22 10:30] LABS: ANION GAP 11 MEQ/L (2-14); CHLORIDE 105 MEQ/L (99-109); GFR ESTIMATE (CALCULATED) 20 mL/min/; GLUCOSE 102 mg/dL (70-99); POTASSIUM 4.4 MEQ/L (3.7-5.4); SAMPLE HEMOLYSIS CHECK 0; SAMPLE ICTERIC CHECK 0; SAMPLE LIPEMIA CHECK 0; SODIUM 137 MEQ/L (136-147); UREA NITROGEN (BUN) 60 mg/dL (9-23)
[2016-08-22 11:22] VITALS: BP 124/68
[2016-08-22 15:39] VITALS: BP 120/62
[2016-08-23 00:12] VITALS: BP 138/85
[2016-08-23 04:00] VITALS: BP 157/94
[2016-08-23 06:50] LABS: EOSINOPHIL (%) 0 % (0-5); HEMATOCRIT 28.4 % (38.0-50.0); IMMATURE GRANULOCYTE (%) 0.6 % (0.0-0.7); IMMATURE GRANULOCYTE COUNT 0.1 K/uL; INSTRUMENT ABS NEUTROPHIL CT 16.9 K/uL; LYMPHOCYTE COUNT 0.7 K/uL (1.0-2.8); MCH 28.8 PG (29.0-34.0); MCHC 33.1 G/DL (30.0-36.0); MCV 87.1 FL (86-99); MEAN PLAT.VOLUME 10.1 uM^3 (9.0-12.4); MONOCYTE (%) 1.6 % (3-12); MONOCYTE COUNT 0.3 K/uL (0-0.8); NEUTROPHIL (%) 93.7 % (45-76); NEUTROPHIL COUNT 16.9 K/uL (1.8-6.4); PLATELET COUNT 197 K/uL (156-360); RBC DIS.WIDTH-CV 14.5 % (11.8-14.6); RBC DIS.WIDTH-SD 46.2 % (39-53); RED BLOOD COUNT 3.26 M/uL (4.00-5.50)
[2016-08-23 07:20] LABS: ANION GAP 12 MEQ/L (2-14); CHLORIDE 107 MEQ/L (99-109); GFR ESTIMATE (CALCULATED) 24 mL/min/; GLUCOSE 138 mg/dL (70-99); POTASSIUM 4.3 MEQ/L (3.7-5.4); SAMPLE HEMOLYSIS CHECK 0; SAMPLE ICTERIC CHECK 0; SAMPLE LIPEMIA CHECK 0; SODIUM 140 MEQ/L (136-147); UREA NITROGEN (BUN) 49 mg/dL (9-23)
[2016-08-23 08:04] VITALS: BP 157/101
[2016-08-23 11:10] VITALS: BP 148/88
[2016-08-23 11:34] LABS: IFE GEL NO. 49-8
[2016-08-23 11:34] LABS: IFE GEL NO. 49-9
[2016-08-23 16:07] VITALS: BP 164/93
[2016-08-23 19:59] VITALS: BP 149/99
[2016-08-24 00:24] VITALS: BP 161/104
[2016-08-24 03:17] VITALS: BP 165/102
[2016-08-24 07:10] LABS: ANION GAP 11 MEQ/L (2-14); CHLORIDE 104 MEQ/L (99-109); GFR ESTIMATE (CALCULATED) 23 mL/min/; GLUCOSE 99 mg/dL (70-99); POTASSIUM 4.2 MEQ/L (3.7-5.4); SAMPLE HEMOLYSIS CHECK 0; SAMPLE ICTERIC CHECK 0; SAMPLE LIPEMIA CHECK 0; SODIUM 139 MEQ/L (136-147); UREA NITROGEN (BUN) 53 mg/dL (9-23)
[2016-08-24 08:14] VITALS: BP 161/97
[2016-08-24 11:26] VITALS: BP 158/97
[2016-08-24 16:30] VITALS: BP 146/87
[2016-08-24 20:25] VITALS: BP 169/69
[2016-08-25] VITALS: BP 109/59
[2016-08-25 04:00] VITALS: BP 122/72
[2016-08-25 06:17] LABS: ANION GAP 9 MEQ/L (2-14); CHLORIDE 104 MEQ/L (99-109); GFR ESTIMATE (CALCULATED) 23 mL/min/; GLUCOSE 84 mg/dL (70-99); POTASSIUM 4.1 MEQ/L (3.7-5.4); SAMPLE HEMOLYSIS CHECK 0; SAMPLE ICTERIC CHECK 0; SAMPLE LIPEMIA CHECK 0; SODIUM 137 MEQ/L (136-147); UREA NITROGEN (BUN) 55 mg/dL (9-23)
[2016-08-25 07:54] VITALS: BP 132/75
[2016-08-25 11:15] VITALS: BP 138/76
[2016-08-25 15:14] VITALS: BP 138/80
[2016-08-25 20:00] VITALS: BP 115/70
[2016-08-26] VITALS: BP 108/77
[2016-08-26 04:00] VITALS: BP 121/83
[2016-08-26 06:45] LABS: ANION GAP 11 MEQ/L (2-14); CHLORIDE 104 MEQ/L (99-109); GFR ESTIMATE (CALCULATED) 20 mL/min/; GLUCOSE 98 mg/dL (70-99); POTASSIUM 4.2 MEQ/L (3.7-5.4); SAMPLE HEMOLYSIS CHECK 0; SAMPLE ICTERIC CHECK 0; SAMPLE LIPEMIA CHECK 0; SODIUM 138 MEQ/L (136-147); UREA NITROGEN (BUN) 55 mg/dL (9-23)
[2016-08-26 07:45] VITALS: BP 142/85
[2016-08-26 11:30] VITALS: BP 162/87
[2016-08-26 16:02] VITALS: BP 159/78
[2016-08-27] VITALS: BP 148/79
[2016-08-27 08:12] VITALS: BP 127/72
[2016-08-27 16:00] VITALS: BP 127/78
[2016-08-27 17:29] VITALS: BP 126/88
[2016-08-27 22:56] VITALS: BP 120/73
[2016-08-28 06:23] LABS: ANION GAP 11 MEQ/L (2-14); CHLORIDE 101 MEQ/L (99-109); GFR ESTIMATE (CALCULATED) 20 mL/min/; GLUCOSE 91 mg/dL (70-99); HEMATOCRIT 28.3 % (38.0-50.0); MCHC 31.8 G/DL (30.0-36.0); MCV 88.2 FL (86-99); MEAN PLAT.VOLUME 9.8 uM^3 (9.0-12.4); POTASSIUM 4.4 MEQ/L (3.7-5.4); RBC DIS.WIDTH-SD 47.6 % (39-53); RED BLOOD COUNT 3.21 M/uL (4.00-5.50); SAMPLE HEMOLYSIS CHECK 0; SAMPLE ICTERIC CHECK 0; SAMPLE LIPEMIA CHECK 0; SODIUM 134 MEQ/L (136-147); UREA NITROGEN (BUN) 57 mg/dL (9-23); WHITE BLOOD COUNT 14.3 K/uL (4.1-10.2)
[2016-08-28 06:29] LABS: PLATELET COUNT 264 K/uL (156-360)
[2016-08-28 07:39] VITALS: BP 122/78
[2016-08-28 15:23] VITALS: BP 132/78
[2016-08-28 23:39] VITALS: BP 138/80
[2016-08-29 06:55] LABS: HEMATOCRIT 28.4 % (38.0-50.0); MCH 28.3 PG (29.0-34.0); MCV 88.2 FL (86-99); MEAN PLAT.VOLUME 9.5 uM^3 (9.0-12.4); PLATELET COUNT 260 K/uL (156-360); RBC DIS.WIDTH-CV 14.8 % (11.8-14.6); RBC DIS.WIDTH-SD 47.6 % (39-53); RED BLOOD COUNT 3.22 M/uL (4.00-5.50); WHITE BLOOD COUNT 11.5 K/uL (4.1-10.2)
[2016-08-29 07:17] LABS: ANION GAP 12 MEQ/L (2-14); CHLORIDE 101 MEQ/L (99-109); GFR ESTIMATE (CALCULATED) 18 mL/min/; GLUCOSE 106 mg/dL (70-99); POTASSIUM 4.3 MEQ/L (3.7-5.4); SAMPLE HEMOLYSIS CHECK 0; SAMPLE ICTERIC CHECK 0; SAMPLE LIPEMIA CHECK 0; SODIUM 134 MEQ/L (136-147); UREA NITROGEN (BUN) 60 mg/dL (9-23)
[2016-08-29 07:28] VITALS: BP 122/57
[2016-08-29 14:23] VITALS: BP 170/82
[2016-08-30] VITALS: BP 142/71
[2016-08-30 06:21] LABS: BASOPHIL COUNT 0.1 K/uL (0-0.1); EOSINOPHIL (%) 8.9 % (0-5); EOSINOPHIL COUNT 0.8 K/uL (0-0.3); IMMATURE GRANULOCYTE (%) 2.2 % (0.0-0.7); IMMATURE GRANULOCYTE COUNT 0.2 K/uL; INSTRUMENT ABS NEUTROPHIL CT 5.9 K/uL; LYMPHOCYTE COUNT 1.6 K/uL (1.0-2.8); MCH 28.4 PG (29.0-34.0); MCHC 32.1 G/DL (30.0-36.0); MCV 88.3 FL (86-99); MEAN PLAT.VOLUME 9.4 uM^3 (9.0-12.4); MONOCYTE (%) 8.6 % (3-12); MONOCYTE COUNT 0.8 K/uL (0-0.8); NEUTROPHIL (%) 62.6 % (45-76); NEUTROPHIL COUNT 5.9 K/uL (1.8-6.4); PLATELET COUNT 269 K/uL (156-360); RBC DIS.WIDTH-CV 14.6 % (11.8-14.6); RBC DIS.WIDTH-SD 46.9 % (39-53); RED BLOOD COUNT 3.17 M/uL (4.00-5.50); WHITE BLOOD COUNT 9.5 K/uL (4.1-10.2)
[2016-08-30 06:41] LABS: ANION GAP 10 MEQ/L (2-14); CHLORIDE 103 MEQ/L (99-109); GFR ESTIMATE (CALCULATED) 16 mL/min/; GLUCOSE 80 mg/dL (70-99); POTASSIUM 4.7 MEQ/L (3.7-5.4); SAMPLE HEMOLYSIS CHECK 0; SAMPLE ICTERIC CHECK 0; SAMPLE LIPEMIA CHECK 0; SODIUM 134 MEQ/L (136-147); UREA NITROGEN (BUN) 57 mg/dL (9-23)
[2016-08-30 07:00] LABS: VANCOMYCIN, TROUGH 26.3 MCG/ML (10-20)
[2016-08-30 09:07] VITALS: BP 133/82
[2016-08-30 12:30] VITALS: BP 139/80
[2016-08-30 15:52] VITALS: BP 133/82
[2016-08-31] VITALS: BP 129/84
[2016-08-31 07:23] LABS: ANION GAP 11 MEQ/L (2-14); CHLORIDE 106 MEQ/L (99-109); GFR ESTIMATE (CALCULATED) 17 mL/min/; GLUCOSE 85 mg/dL (70-99); POTASSIUM 4.4 MEQ/L (3.7-5.4); SAMPLE HEMOLYSIS CHECK 0; SAMPLE ICTERIC CHECK 0; SAMPLE LIPEMIA CHECK 0; SODIUM 135 MEQ/L (136-147); UREA NITROGEN (BUN) 55 mg/dL (9-23)
[2016-08-31 07:26] LABS: VANCOMYCIN, TROUGH 20.4 MCG/ML (10-20)
[2016-08-31 08:17] LABS: EOSINOPHIL (%) 8.2 % (0-5); EOSINOPHIL COUNT 0.7 K/uL (0-0.3); IMMATURE GRANULOCYTE (%) 1.2 % (0.0-0.7); IMMATURE GRANULOCYTE COUNT 0.1 K/uL; INSTRUMENT ABS NEUTROPHIL CT 5.4 K/uL; LYMPHOCYTE COUNT 1.5 K/uL (1.0-2.8); MCH 28.4 PG (29.0-34.0); MCHC 32.2 G/DL (30.0-36.0); MCV 88.2 FL (86-99); MEAN PLAT.VOLUME 9.9 uM^3 (9.0-12.4); MONOCYTE (%) 9.6 % (3-12); MONOCYTE COUNT 0.8 K/uL (0-0.8); NEUTROPHIL COUNT 5.4 K/uL (1.8-6.4); PLATELET COUNT 248 K/uL (156-360); RBC DIS.WIDTH-CV 14.8 % (11.8-14.6); RBC DIS.WIDTH-SD 47.2 % (39-53); RED BLOOD COUNT 3.06 M/uL (4.00-5.50); WHITE BLOOD COUNT 8.5 K/uL (4.1-10.2)
[2016-08-31 08:26] VITALS: BP 132/66
[2016-08-31 15:10] VITALS: BP 129/71
[2016-09-01] VITALS: BP 134/78
[2016-09-01 07:10] LABS: EOSINOPHIL (%) 6.6 % (0-5); EOSINOPHIL COUNT 0.5 K/uL (0-0.3); HEMATOCRIT 28.3 % (38.0-50.0); IMMATURE GRANULOCYTE COUNT 0.1 K/uL; LYMPHOCYTE COUNT 1.7 K/uL (1.0-2.8); MCH 27.9 PG (29.0-34.0); MCHC 31.1 G/DL (30.0-36.0); MCV 89.8 FL (86-99); MEAN PLAT.VOLUME 9.5 uM^3 (9.0-12.4); MONOCYTE (%) 10.2 % (3-12); MONOCYTE COUNT 0.8 K/uL (0-0.8); NEUTROPHIL (%) 60.5 % (45-76); PLATELET COUNT 261 K/uL (156-360); RBC DIS.WIDTH-CV 14.9 % (11.8-14.6); RBC DIS.WIDTH-SD 48.4 % (39-53); RED BLOOD COUNT 3.15 M/uL (4.00-5.50); WHITE BLOOD COUNT 8.2 K/uL (4.1-10.2)
[2016-09-01 07:34] LABS: ANION GAP 11 MEQ/L (2-14); CHLORIDE 106 MEQ/L (99-109); GFR ESTIMATE (CALCULATED) 16 mL/min/; GLUCOSE 81 mg/dL (70-99); POTASSIUM 4.9 MEQ/L (3.7-5.4); SAMPLE HEMOLYSIS CHECK 0; SAMPLE ICTERIC CHECK 0; SAMPLE LIPEMIA CHECK 0; SODIUM 136 MEQ/L (136-147); UREA NITROGEN (BUN) 59 mg/dL (9-23); VANCOMYCIN, TROUGH 20.3 MCG/ML (10-20)
[2016-09-01 07:42] VITALS: BP 138/82
[2016-09-01 15:35] VITALS: BP 130/72
[2016-09-02 00:11] VITALS: BP 147/78
[2016-09-02 06:07] LABS: EOSINOPHIL (%) 7.3 % (0-5); EOSINOPHIL COUNT 0.6 K/uL (0-0.3); HEMATOCRIT 28.5 % (38.0-50.0); IMMATURE GRANULOCYTE (%) 0.8 % (0.0-0.7); IMMATURE GRANULOCYTE COUNT 0.1 K/uL; INSTRUMENT ABS NEUTROPHIL CT 4.4 K/uL; LYMPHOCYTE COUNT 1.7 K/uL (1.0-2.8); MCH 28.2 PG (29.0-34.0); MCHC 31.6 G/DL (30.0-36.0); MCV 89.3 FL (86-99); MEAN PLAT.VOLUME 9.3 uM^3 (9.0-12.4); MONOCYTE (%) 12.5 % (3-12); NEUTROPHIL COUNT 4.4 K/uL (1.8-6.4); PLATELET COUNT 273 K/uL (156-360); RBC DIS.WIDTH-CV 14.7 % (11.8-14.6); RBC DIS.WIDTH-SD 47.8 % (39-53); RED BLOOD COUNT 3.19 M/uL (4.00-5.50); WHITE BLOOD COUNT 7.6 K/uL (4.1-10.2)
[2016-09-02 06:32] LABS: ANION GAP 12 MEQ/L (2-14); CHLORIDE 103 MEQ/L (99-109); GFR ESTIMATE (CALCULATED) 17 mL/min/; GLUCOSE 87 mg/dL (70-99); POTASSIUM 4.8 MEQ/L (3.7-5.4); SAMPLE HEMOLYSIS CHECK 0; SAMPLE ICTERIC CHECK 0; SAMPLE LIPEMIA CHECK 0; SODIUM 134 MEQ/L (136-147); UREA NITROGEN (BUN) 51 mg/dL (9-23)
[2016-09-02 06:33] LABS: VANCOMYCIN, TROUGH 17.7 MCG/ML (10-20)
[2016-09-02 08:11] VITALS: BP 145/83
[2016-09-02 16:01] VITALS: BP 150/83
[2016-09-02 23:49] VITALS: BP 129/69
[2016-09-03 07:52] VITALS: BP 134/71
[2016-09-03 09:24] LABS: ANION GAP 9 MEQ/L (2-14); CHLORIDE 106 MEQ/L (99-109); GFR ESTIMATE (CALCULATED) 17 mL/min/; GLUCOSE 86 mg/dL (70-99); POTASSIUM 5.2 MEQ/L (3.7-5.4); SAMPLE HEMOLYSIS CHECK 0; SAMPLE ICTERIC CHECK 0; SAMPLE LIPEMIA CHECK 0; SODIUM 137 MEQ/L (136-147); UREA NITROGEN (BUN) 46 mg/dL (9-23)
[2016-09-03 15:52] VITALS: BP 127/84
[2016-09-04] VITALS: BP 132/72
[2016-09-04 07:28] LABS: ANION GAP 10 MEQ/L (2-14); CHLORIDE 105 MEQ/L (99-109); GFR ESTIMATE (CALCULATED) 17 mL/min/; GLUCOSE 89 mg/dL (70-99); POTASSIUM 4.9 MEQ/L (3.7-5.4); SAMPLE HEMOLYSIS CHECK 0; SAMPLE ICTERIC CHECK 0; SAMPLE LIPEMIA CHECK 0; SODIUM 136 MEQ/L (136-147); UREA NITROGEN (BUN) 44 mg/dL (9-23)
[2016-09-04 07:59] VITALS: BP 139/77
[2016-09-04] MEDS ORDERED: CALCITRIOL0.25 MCG PO (11:48)
[2016-09-04] MEDS ORDERED: CARVEDILOL3.125 MG PO (14:24)
[2016-09-04] MEDS ORDERED: AMLODIPINE BESY10 MG PO (14:24)
[2016-09-04 15:11] VITALS: BP 152/83
== END 2016-09-04 17:50 | DRG 698 ==
LOC: EME 08:08 → EDOF 10:31 → 5SOUTH 10:31
PROVIDERS: Emergency Medicine; Hospitalist; Internal Medicine; Nurse Practitioner Adult Health; Physician Assistant Medical
DX: T83.511A Infection and inflammatory reaction due to indwelling urethral catheter, initial encounter (principal); N18.4 Chronic kidney disease, stage 4 (severe); N17.9 Acute kidney failure, unspecified; D63.1 Anemia in chronic kidney disease; I12.9 Hypertensive chronic kidney disease with stage 1 through stage 4 chronic kidney disease, or unspecified chronic kidney disease; F02.80 Dementia in other diseases classified elsewhere, unspecified severity, without behavioral disturbance, psychotic disturbance, mood disturbance, and anxiety; I25.10 Atherosclerotic heart disease of native coronary artery without angina pectoris; Z95.5 Presence of coronary angioplasty implant and graft; I87.8 Other specified disorders of veins; I25.2 Old myocardial infarction; E03.9 Hypothyroidism, unspecified; I69.922 Dysarthria following unspecified cerebrovascular disease; F03.90 Unspecified dementia, unspecified severity, without behavioral disturbance, psychotic disturbance, mood disturbance, and anxiety; R33.9 Retention of urine, unspecified; A41.9 Sepsis, unspecified organism; N40.1 Benign prostatic hyperplasia with lower urinary tract symptoms; N31.9 Neuromuscular dysfunction of bladder, unspecified; Z87.891 Personal history of nicotine dependence; Z87.440 Personal history of urinary (tract) infections; E86.0 Dehydration; E83.51 Hypocalcemia; D62 Acute posthemorrhagic anemia; R73.09 Other abnormal glucose; S37.30XA Unspecified injury of urethra, initial encounter; X58.XXXA Exposure to other specified factors, initial encounter; Y92.129 Unspecified place in nursing home as the place of occurrence of the external cause
CPT/HCPCS: 71010; 76770; 80048; 80069; 80202; 81003; 82272; 82306; 82330; 82570; 83540; 83605; 83970; 84156; 84300; 84466; 85025; 85027; 86334; 86335; 86900; 86901; 86920; 87040; 87077; 87086; 87147; 87186; 87493; 87801; 92610 GN; 93306; 94640; 94640 76; 94760; 94799; 99202; 99281; 99284; 99285; C1752; C1769; C1894; J0692; J0696; J0881; J1644; J1756; J1940; J2060; J2250; J2920; J3010; J3370; J7030; J7050; J7120; P9016; S0020; S0028

== ENCOUNTER → 2016-09-26 | Outpatient (CLI) | payer OTHER ==
[~2016-09-26] MED LIST changes: +ACETAMINOPHEN325 M1 PO; +AMLODIPINE BESY10 MG PO; +ASCORBIC ACID250 MG PO; +CALCITRIOL0.25 MCG PO; +CARVEDILOL3.125 MG PO; +EPOGEN,PRO10000 UNIT SC; +LIDODERM 5% P1 PATCH TD; +TRAMADOL HCL50 MG PO; +[UNRECOGNIZED DRUG - OTHER]
== END | disposition home or self-care (01) ==
LOC: AMB 09-24 08:30
PROC: 0JPT0XZ Removal of Tunneled Vascular Access Device from Trunk Subcutaneous Tissue and Fascia, Open Approach (ICD-10-PCS; principal; 2016-09-26)
DX: Z45.2 Encounter for adjustment and management of vascular access device (principal); I87.8 Other specified disorders of veins

== ENCOUNTER → 2017-01-20 | Day surgery (SDC) | payer OTHER ==
[~2017-01-20] VITALS: Ht 170.2 cm; Wt 59.6 kg
[2017-01-20 15:13] LABS: EOSINOPHIL (%) 10.2 % (0-5); EOSINOPHIL COUNT 1.4 K/uL (0-0.3); HEMATOCRIT 32.6 % (38.0-50.0); IMMATURE GRANULOCYTE (%) 0.6 % (0.0-0.7); IMMATURE GRANULOCYTE COUNT 0.1 K/uL; INSTRUMENT ABS NEUTROPHIL CT 8.5 K/uL; LYMPHOCYTE COUNT 2.9 K/uL (1.0-2.8); MCH 28.6 PG (29.0-34.0); MCHC 32.2 G/DL (30.0-36.0); MCV 88.8 FL (86-99); MEAN PLAT.VOLUME 8.2 uM^3 (9.0-12.4); MONOCYTE COUNT 1.1 K/uL (0-0.8); NEUTROPHIL (%) 60.5 % (45-76); NEUTROPHIL COUNT 8.5 K/uL (1.8-6.4); PLATELET COUNT 269 K/uL (156-360); RBC DIS.WIDTH-CV 13.8 % (11.8-14.6); RBC DIS.WIDTH-SD 44.8 % (39-53); RED BLOOD COUNT 3.67 M/uL (4.00-5.50)
[2017-01-20 15:20] LABS: POINT-OF-CARE METER ID UU13113702
[2017-01-20 15:21] LABS: CHLORIDE 106 mEq/L (99-109); POTASSIUM 3.9 mEq/L (3.7-5.4); SODIUM 143 mEq/L (136-147)
[2017-01-20 15:23] LABS: GLUCOSE 116 mg/dL (70-99)
[2017-01-20 15:24] LABS: ANION GAP 13 MEQ/L (2-14)
[2017-01-20 15:26] LABS: GFR ESTIMATE (CALCULATED) 25 mL/min/
[2017-01-20 15:27] LABS: UREA NITROGEN (BUN) 41 mg/dL (9-23)
[2017-01-20 17:36] VITALS: BP 189/104
== END ==
LOC: EME 14:38 → SDC 20:47
PROVIDERS: Emergency Medicine
DX: T18.128A Food in esophagus causing other injury, initial encounter (principal); K22.2 Esophageal obstruction; K44.9 Diaphragmatic hernia without obstruction or gangrene; K29.70 Gastritis, unspecified, without bleeding; I25.10 Atherosclerotic heart disease of native coronary artery without angina pectoris; I25.2 Old myocardial infarction; E78.5 Hyperlipidemia, unspecified; I12.9 Hypertensive chronic kidney disease with stage 1 through stage 4 chronic kidney disease, or unspecified chronic kidney disease; N18.9 Chronic kidney disease, unspecified; K21.9 Gastro-esophageal reflux disease without esophagitis; D50.8 Other iron deficiency anemias; N40.0 Benign prostatic hyperplasia without lower urinary tract symptoms; I27.2 Other secondary pulmonary hypertension; E03.9 Hypothyroidism, unspecified; Z79.02 Long term (current) use of antithrombotics/antiplatelets; Z79.82 Long term (current) use of aspirin
CPT/HCPCS: 71010; 80048; 82948; 85025; 93005; 99281; 99284; C9113; J1100; J2405

== ENCOUNTER 2017-01-27 01:16 | Emergency (ER) | payer OTHER ==
[~2017-01-27] VITALS: Ht 170.2 cm; Wt 61.4 kg
[~2017-01-27 01:16] MED LIST changes: +MAGIC CUP; -[UNRECOGNIZED DRUG - OTHER]
[2017-01-27 02:39] LABS: HEMATOCRIT 28.1 % (38.0-50.0); MCH 28.6 PG (29.0-34.0); MCHC 31.3 G/DL (30.0-36.0); MCV 91.2 FL (86-99); MEAN PLAT.VOLUME 8.9 uM^3 (9.0-12.4); PLATELET COUNT 231 K/uL (156-360); RBC DIS.WIDTH-CV 14.3 % (11.8-14.6); RED BLOOD COUNT 3.08 M/uL (4.00-5.50); WHITE BLOOD COUNT 13.2 K/uL (4.1-10.2)
[2017-01-27 02:52] LABS: CHLORIDE 103 mEq/L (99-109); POTASSIUM 4.4 mEq/L (3.7-5.4); SODIUM 141 mEq/L (136-147)
[2017-01-27 02:53] LABS: GLUCOSE 91 mg/dL (70-99)
[2017-01-27 02:55] LABS: ANION GAP 10 MEQ/L (2-14)
[2017-01-27 02:57] LABS: GFR ESTIMATE (CALCULATED) 24 mL/min/
[2017-01-27 02:58] LABS: UREA NITROGEN (BUN) 44 mg/dL (9-23)
[2017-01-27 03:20] LABS: ADD MIUA? YES; BILIRUBIN NEGATIVE; BLOOD LARGE; COLOR YELLOW ((YELLOW)); GLUCOSE (STRIP) NEGATIVE; KETONES NEGATIVE; LEUKOCYTES TRACE; NITRITE NEGATIVE; PROTEIN (STRIP) 30; SPECIFIC GRAVITY 1.017 (1.000-1.030); UROBILINOGEN 0.2 MG/DL (0.2-1.0)
[2017-01-27] MEDS ORDERED: CIPRO500 MG PO (03:45)
[2017-01-27 03:56] LABS: BACTERIA RARE /HPF; CASTS NONE SEEN /LPF; CRYSTALS NONE SEEN; EPITHELIAL CELLS RARE /HPF; MUCUS NONE SEEN /LPF; RED BLOOD CELLS TNTC /HPF (0-5); UCUL ADDED? YES; WHITE BLOOD CELLS 0-5 /HPF (0-5)
[2017-01-27 05:20] VITALS: BP 116/88
== END 2017-01-27 05:23 ==
LOC: EME 01:16
PROVIDERS: Emergency Medicine
PROC: 0T2BX0Z Change Drainage Device in Bladder, External Approach (ICD-10-PCS; principal; 2017-01-27)
DX: Z46.6 Encounter for fitting and adjustment of urinary device (principal); N30.01 Acute cystitis with hematuria; N18.9 Chronic kidney disease, unspecified; D64.9 Anemia, unspecified; F03.90 Unspecified dementia, unspecified severity, without behavioral disturbance, psychotic disturbance, mood disturbance, and anxiety
CPT/HCPCS: 80048; 81003; 85027; 87077; 87086; 87186; 99281; 99285

== ENCOUNTER 2017-02-02 09:54 | Inpatient (IN) | payer OTHER ==
[~2017-02-02] VITALS: Ht 172.7 cm; Wt 62.4 kg
[2017-02-02 10:29] LABS: EOSINOPHIL (%) 0.4 % (0-5); EOSINOPHIL COUNT 0.1 K/uL (0-0.3); HEMATOCRIT 25.4 % (38.0-50.0); IMMATURE GRANULOCYTE (%) 0.6 % (0.0-0.7); IMMATURE GRANULOCYTE COUNT 0.1 K/uL; INSTRUMENT ABS NEUTROPHIL CT 14.9 K/uL; LYMPHOCYTE COUNT 2.1 K/uL (1.0-2.8); MCHC 31.9 G/DL (30.0-36.0); MEAN PLAT.VOLUME 9.4 uM^3 (9.0-12.4); MONOCYTE (%) 6.5 % (3-12); MONOCYTE COUNT 1.2 K/uL (0-0.8); NEUTROPHIL (%) 81.2 % (45-76); NEUTROPHIL COUNT 14.9 K/uL (1.8-6.4); PLATELET COUNT 220 K/uL (156-360); RBC DIS.WIDTH-CV 13.7 % (11.8-14.6); RBC DIS.WIDTH-SD 45.9 % (39-53); RED BLOOD COUNT 2.79 M/uL (4.00-5.50); WHITE BLOOD COUNT 18.4 K/uL (4.1-10.2)
[2017-02-02 10:35] LABS: INTER. NORMALIZED RATIO 1.3; PROTHROMBIN TIME 14.4 SEC (10.2-12.9)
[2017-02-02 10:38] LABS: CHLORIDE 104 mEq/L (99-109); POTASSIUM 4.4 mEq/L (3.7-5.4); PTT 30.7 SEC (25-37); SODIUM 139 mEq/L (136-147)
[2017-02-02 10:39] LABS: GLUCOSE 122 mg/dL (70-99)
[2017-02-02 10:41] LABS: ANION GAP 11 MEQ/L (2-14)
[2017-02-02 10:43] LABS: GFR ESTIMATE (CALCULATED) 19 mL/min/
[2017-02-02 10:44] LABS: UREA NITROGEN (BUN) 41 mg/dL (9-23)
[2017-02-02 10:49] LABS: TROP-I INTERPRETATION NEGATIVE; TROPONIN-I 0.03 ng/mL (0.0-0.30)
[2017-02-02] MEDS ORDERED: ROCALTROL0.25 MCG PO (12:49)
[2017-02-02] MEDS ORDERED: COLACE100 MG PO (12:51)
[2017-02-02] MEDS ORDERED: FEOSOL325 MG PO (12:52)
[2017-02-02] MEDS ORDERED: PROTONIX40 MG PO (12:52)
[2017-02-02] MEDS ORDERED: REMERON15 M2 PO (12:52)
[2017-02-02] MEDS ORDERED: SYNTHROID75 MCG PO (12:53)
[2017-02-02] MEDS ORDERED: ZOLOFT50 MG PO (12:55)
[2017-02-02] MEDS ORDERED: AUGMENTIN875 MG PO (12:55)
[2017-02-02] MEDS ORDERED: COREG3.125 M1 PO (12:56)
[2017-02-02] MEDS ORDERED: CIPRO250 MG PO (13:14)
[2017-02-02] MEDS ORDERED: BENADRYL25 MG PO (13:17)
[2017-02-02] MEDS ORDERED: ASPERCREME76.5 GM TP (13:17)
[2017-02-02] MEDS ORDERED: MILK OF MAGN PO (13:19)
[2017-02-02 14:37] LABS: ADD MIUA? YES; BILIRUBIN NEGATIVE; BLOOD NEGATIVE; COLOR YELLOW ((YELLOW)); GLUCOSE (STRIP) NEGATIVE; KETONES NEGATIVE; LEUKOCYTES TRACE; NITRITE NEGATIVE; PROTEIN (STRIP) 100; SPECIFIC GRAVITY 1.016 (1.000-1.030); UROBILINOGEN 0.2 MG/DL (0.2-1.0)
[2017-02-02 14:44] LABS: BACTERIA RARE /HPF; EPITHELIAL CELLS NONE SEEN /HPF; HYALINE CASTS 0-5 /LPF; MUCUS TRACE /LPF; RED BLOOD CELLS 0-5 /HPF (0-5); UCUL ADDED? NO; WHITE BLOOD CELLS 0-5 /HPF (0-5)
[2017-02-02 15:05] VITALS: BP 158/76
[2017-02-02 18:32] LABS: TROP-I INTERPRETATION NEGATIVE; TROPONIN-I 0.04 ng/mL (0.0-0.30)
[2017-02-02 19:15] VITALS: BP 125/73
[2017-02-02 21:42] LABS: EOSINOPHIL (%) 1.7 % (0-5); EOSINOPHIL COUNT 0.4 K/uL (0-0.3); HEMATOCRIT 24.1 % (38.0-50.0); IMMATURE GRANULOCYTE (%) 0.6 % (0.0-0.7); IMMATURE GRANULOCYTE COUNT 0.1 K/uL; INSTRUMENT ABS NEUTROPHIL CT 15.8 K/uL; LYMPHOCYTE COUNT 3.2 K/uL (1.0-2.8); MCH 29.8 PG (29.0-34.0); MCHC 32.8 G/DL (30.0-36.0); MCV 90.9 FL (86-99); MEAN PLAT.VOLUME 9.4 uM^3 (9.0-12.4); MONOCYTE (%) 7.8 % (3-12); MONOCYTE COUNT 1.6 K/uL (0-0.8); NEUTROPHIL (%) 74.6 % (45-76); NEUTROPHIL COUNT 15.8 K/uL (1.8-6.4); PLATELET COUNT 249 K/uL (156-360); RBC DIS.WIDTH-CV 13.9 % (11.8-14.6); RBC DIS.WIDTH-SD 46.5 % (39-53); RED BLOOD COUNT 2.65 M/uL (4.00-5.50); WHITE BLOOD COUNT 21.1 K/uL (4.1-10.2)
[2017-02-02 21:50] LABS: POINT-OF-CARE METER ID UU13113698
[2017-02-02 21:52] LABS: ANION GAP 16 MEQ/L (2-14); CHLORIDE 103 MEQ/L (99-109); POTASSIUM 4.4 MEQ/L (3.7-5.4); SAMPLE HEMOLYSIS CHECK 0; SAMPLE ICTERIC CHECK 0; SAMPLE LIPEMIA CHECK 0; SODIUM 138 MEQ/L (136-147)
[2017-02-02 21:57] LABS: GFR ESTIMATE (CALCULATED) 20 mL/min/; GLUCOSE 118 mg/dL (70-99); UREA NITROGEN (BUN) 43 mg/dL (9-23)
[2017-02-02 22:36] LABS: TROP-I INTERPRETATION NEGATIVE; TROPONIN-I 0.04 ng/mL (0.0-0.30)
[2017-02-03 00:19] VITALS: BP 131/66
[2017-02-03 05:15] LABS: HEMATOCRIT 24.2 % (38.0-50.0); MCH 28.9 PG (29.0-34.0); MCHC 32.2 G/DL (30.0-36.0); MCV 89.6 FL (86-99); MEAN PLAT.VOLUME 9.5 uM^3 (9.0-12.4); PLATELET COUNT 225 K/uL (156-360); RBC DIS.WIDTH-CV 13.6 % (11.8-14.6); RBC DIS.WIDTH-SD 44.7 % (39-53); WHITE BLOOD COUNT 14.6 K/uL (4.1-10.2)
[2017-02-03 05:44] LABS: ALKALINE PHOSPHATASE 84 IU/L (3-129); ANION GAP 14 MEQ/L (2-14); CHLORIDE 103 MEQ/L (99-109); GFR ESTIMATE (CALCULATED) 20 mL/min/; GLUCOSE 156 mg/dL (70-99); POTASSIUM 4.3 MEQ/L (3.7-5.4); SAMPLE HEMOLYSIS CHECK 0; SAMPLE ICTERIC CHECK 0; SAMPLE LIPEMIA CHECK 0; SODIUM 140 MEQ/L (136-147); TOTAL BILIRUBIN 0.5 MG/DL (0.0-1.0); UREA NITROGEN (BUN) 45 mg/dL (9-23)
[2017-02-03 05:45] VITALS: BP 144/79
[2017-02-03 08:08] VITALS: BP 176/83
[2017-02-03 11:45] VITALS: BP 129/74
[2017-02-03 15:33] VITALS: BP 143/82
[2017-02-03 19:29] VITALS: BP 131/82
[2017-02-04] VITALS (7 sets, daily range): BP systolic 113–138; BP diastolic 55–73
[2017-02-04 05:16] LABS: HEMATOCRIT 22.7 % (38.0-50.0); MCH 29.3 PG (29.0-34.0); MCHC 33.5 G/DL (30.0-36.0); MCV 87.6 FL (86-99); MEAN PLAT.VOLUME 9.6 uM^3 (9.0-12.4); PLATELET COUNT 288 K/uL (156-360); RBC DIS.WIDTH-CV 13.7 % (11.8-14.6); RBC DIS.WIDTH-SD 44.1 % (39-53); RED BLOOD COUNT 2.59 M/uL (4.00-5.50); WHITE BLOOD COUNT 20.2 K/uL (4.1-10.2)
[2017-02-05 04:26] VITALS: BP 108/57
[2017-02-05 05:28] LABS: HEMATOCRIT 23.2 % (38.0-50.0); MCHC 33.6 G/DL (30.0-36.0); MCV 89.2 FL (86-99); MEAN PLAT.VOLUME 9.6 uM^3 (9.0-12.4); PLATELET COUNT 319 K/uL (156-360); RBC DIS.WIDTH-CV 13.9 % (11.8-14.6)
[2017-02-05 05:55] LABS: ANION GAP 14 MEQ/L (2-14); CHLORIDE 105 MEQ/L (99-109); GFR ESTIMATE (CALCULATED) 20 mL/min/; POTASSIUM 3.8 MEQ/L (3.7-5.4); SAMPLE HEMOLYSIS CHECK 0; SAMPLE ICTERIC CHECK 0; SAMPLE LIPEMIA CHECK 0; SODIUM 141 MEQ/L (136-147); UREA NITROGEN (BUN) 65 mg/dL (9-23)
[2017-02-05 06:41] LABS: GLUCOSE 86 mg/dL (70-99)
[2017-02-05 07:26] VITALS: BP 149/72
[2017-02-05 11:34] VITALS: BP 127/70
== END 2017-02-05 16:08 | DRG 191 ==
LOC: EME → EDBD 09:54 → EME 09:54 → EDOF 12:48 → 4EAST 12:48 → ENRESERV 12:51 → 4EAST 14:26 → ENPENDDIS 02-05 → 4EAST 02-05 16:08
PROVIDERS: Emergency Medicine; Family Medicine; Hospitalist; Internal Medicine; Physician Assistant Medical
DX: J44.0 Chronic obstructive pulmonary disease with (acute) lower respiratory infection (principal); J20.9 Acute bronchitis, unspecified; J44.1 Chronic obstructive pulmonary disease with (acute) exacerbation; R07.9 Chest pain, unspecified; D63.1 Anemia in chronic kidney disease; D50.9 Iron deficiency anemia, unspecified; I13.0 Hypertensive heart and chronic kidney disease with heart failure and stage 1 through stage 4 chronic kidney disease, or unspecified chronic kidney disease; N18.4 Chronic kidney disease, stage 4 (severe); I50.9 Heart failure, unspecified; J84.10 Pulmonary fibrosis, unspecified; G30.9 Alzheimer's disease, unspecified; F02.80 Dementia in other diseases classified elsewhere, unspecified severity, without behavioral disturbance, psychotic disturbance, mood disturbance, and anxiety; I69.322 Dysarthria following cerebral infarction; N40.1 Benign prostatic hyperplasia with lower urinary tract symptoms; R33.9 Retention of urine, unspecified; I25.10 Atherosclerotic heart disease of native coronary artery without angina pectoris; K21.9 Gastro-esophageal reflux disease without esophagitis; E03.9 Hypothyroidism, unspecified; E78.5 Hyperlipidemia, unspecified; R21 Rash and other nonspecific skin eruption; Z82.0 Family history of epilepsy and other diseases of the nervous system; Z87.891 Personal history of nicotine dependence
CPT/HCPCS: 71010; 71250; 74230; 78582; 80048; 80048 91; 80053; 81003; 82948; 83605; 83880; 84484; 85025; 85025 91; 85027; 85379; 85610; 85730; 87040; 92526 GN; 92611 GN; 93005; 93306; 94640; 94640 76; 94799; 97530 GP; 99202; 99281; 99285; A9539; A9540; J0692; J1644; J1940; J2270; J2930; J7050

== ENCOUNTER 2017-02-11 05:44 | Emergency (ER) | payer OTHER ==
[~2017-02-11] VITALS: Ht 180.3 cm; Wt 62.7 kg
[~2017-02-11 05:44] MED LIST changes: +ASPERCREME76.5 GM TP; +AUGMENTIN875 MG PO; +BENADRYL25 MG PO; +CIPRO250 MG PO; +COLACE100 MG PO; +COREG3.125 M1 PO; +FEOSOL325 MG PO; +PROTONIX40 MG PO; +REMERON15 M2 PO; +ROCALTROL0.25 MCG PO; +ZOLOFT50 MG PO
[2017-02-11 07:14] LABS: ADD MIUA? YES; BILIRUBIN NEGATIVE; BLOOD LARGE; COLOR STRAW ((YELLOW)); GLUCOSE (STRIP) NEGATIVE; KETONES NEGATIVE; LEUKOCYTES NEGATIVE; NITRITE NEGATIVE; PROTEIN (STRIP) NEGATIVE; SPECIFIC GRAVITY 1.004 (1.000-1.030); UROBILINOGEN 0.2 MG/DL (0.2-1.0)
[2017-02-11 07:19] LABS: EOSINOPHIL (%) 10.7 % (0-5); HEMATOCRIT 24.9 % (38.0-50.0); IMMATURE GRANULOCYTE (%) 3.5 % (0.0-0.7); IMMATURE GRANULOCYTE COUNT 0.3 K/uL; LYMPHOCYTE COUNT 2.2 K/uL (1.0-2.8); MCH 29.1 PG (29.0-34.0); MCHC 31.3 G/DL (30.0-36.0); MCV 92.9 FL (86-99); MONOCYTE (%) 10.8 % (3-12); NEUTROPHIL (%) 51.5 % (45-76); RBC DIS.WIDTH-CV 14.7 % (11.8-14.6); RED BLOOD COUNT 2.68 M/uL (4.00-5.50); WHITE BLOOD COUNT 9.7 K/uL (4.1-10.2)
[2017-02-11 07:34] LABS: INTER. NORMALIZED RATIO 1.1; PROTHROMBIN TIME 12.1 SEC (10.2-12.9)
[2017-02-11 07:35] LABS: BACTERIA NONE SEEN /HPF; EPITHELIAL CELLS NONE SEEN /HPF; MUCUS NONE SEEN /LPF; RED BLOOD CELLS TNTC /HPF (0-5); UCUL ADDED? YES; WHITE BLOOD CELLS 0-5 /HPF (0-5)
[2017-02-11 07:37] LABS: ANION GAP 6 MEQ/L (2-14); CHLORIDE 104 MEQ/L (99-109); POTASSIUM 4.3 MEQ/L (3.7-5.4); SAMPLE HEMOLYSIS CHECK 0; SAMPLE ICTERIC CHECK 0; SAMPLE LIPEMIA CHECK 0; SODIUM 137 MEQ/L (136-147)
[2017-02-11 07:43] LABS: GFR ESTIMATE (CALCULATED) 23 mL/min/; GLUCOSE 75 mg/dL (70-99); UREA NITROGEN (BUN) 38 mg/dL (9-23)
[2017-02-11 07:59] LABS: MEAN PLAT.VOLUME 8.8 uM^3 (9.0-12.4); PLATELET COUNT 422 K/uL (156-360)
[2017-02-11 10:00] VITALS: BP 135/67
== END 2017-02-11 10:44 ==
LOC: EME → EDBD 05:44 → EME 10:44
PROVIDERS: Emergency Medicine
PROC: 3E1K78Z Irrigation of Genitourinary Tract using Irrigating Substance, Via Natural or Artificial Opening (ICD-10-PCS; principal; 2017-02-11)
DX: R33.9 Retention of urine, unspecified (principal); D64.9 Anemia, unspecified; R31.9 Hematuria, unspecified; T83.83XA Hemorrhage due to genitourinary prosthetic devices, implants and grafts, initial encounter; I12.9 Hypertensive chronic kidney disease with stage 1 through stage 4 chronic kidney disease, or unspecified chronic kidney disease; N18.9 Chronic kidney disease, unspecified; E03.9 Hypothyroidism, unspecified; F03.90 Unspecified dementia, unspecified severity, without behavioral disturbance, psychotic disturbance, mood disturbance, and anxiety
CPT/HCPCS: 80048; 81003; 85025; 85610; 87086; 99281; 99285

== ENCOUNTER 2017-02-17 08:43 | Inpatient (IN) | payer OTHER ==
[~2017-02-17] VITALS: Ht 170.2 cm; Wt 63.7 kg
[2017-02-17 09:11] LABS: EOSINOPHIL (%) 6.2 % (0-5); EOSINOPHIL COUNT 0.8 K/uL (0-0.3); HEMATOCRIT 28.6 % (38.0-50.0); IMMATURE GRANULOCYTE (%) 0.5 % (0.0-0.7); IMMATURE GRANULOCYTE COUNT 0.1 K/uL; INSTRUMENT ABS NEUTROPHIL CT 9.2 K/uL; LYMPHOCYTE COUNT 1.9 K/uL (1.0-2.8); MCH 29.7 PG (29.0-34.0); MCHC 32.2 G/DL (30.0-36.0); MCV 92.3 FL (86-99); MEAN PLAT.VOLUME 8.8 uM^3 (9.0-12.4); MONOCYTE (%) 9.9 % (3-12); MONOCYTE COUNT 1.3 K/uL (0-0.8); NEUTROPHIL (%) 69.3 % (45-76); NEUTROPHIL COUNT 9.2 K/uL (1.8-6.4); PLATELET COUNT 297 K/uL (156-360); RBC DIS.WIDTH-CV 14.7 % (11.8-14.6); RBC DIS.WIDTH-SD 49.4 % (39-53); WHITE BLOOD COUNT 13.3 K/uL (4.1-10.2)
[2017-02-17 09:18] LABS: INTER. NORMALIZED RATIO 1.1; PROTHROMBIN TIME 12.5 SEC (10.2-12.9)
[2017-02-17 09:20] LABS: PTT 29.4 SEC (25-37)
[2017-02-17 09:27] LABS: CHLORIDE 104 mEq/L (99-109); POTASSIUM 4.2 mEq/L (3.7-5.4); SODIUM 141 mEq/L (136-147)
[2017-02-17 09:28] LABS: GLUCOSE 99 mg/dL (70-99)
[2017-02-17 09:30] LABS: ANION GAP 13 MEQ/L (2-14)
[2017-02-17 09:32] LABS: GFR ESTIMATE (CALCULATED) 22 mL/min/
[2017-02-17 09:33] LABS: UREA NITROGEN (BUN) 40 mg/dL (9-23)
[2017-02-17 09:36] LABS: TROP-I INTERPRETATION NEGATIVE; TROPONIN-I 0.02 ng/mL (0.0-0.30)
[2017-02-17] MEDS ORDERED: NYSTOP60 GM TP (10:22)
[2017-02-17 11:34] LABS: ADD MIUA? YES; BILIRUBIN NEGATIVE; BLOOD LARGE; COLOR YELLOW ((YELLOW)); GLUCOSE (STRIP) NEGATIVE; KETONES NEGATIVE; LEUKOCYTES LARGE; NITRITE NEGATIVE; PROTEIN (STRIP) 100; SPECIFIC GRAVITY 1.016 (1.000-1.030); UROBILINOGEN 0.2 MG/DL (0.2-1.0)
[2017-02-17 11:51] LABS: BACTERIA RARE /HPF; EPITHELIAL CELLS NONE SEEN /HPF; MUCUS NONE SEEN /LPF; RED BLOOD CELLS TNTC /HPF (0-5); WHITE BLOOD CELLS TNTC /HPF (0-5)
[2017-02-17 12:20] VITALS: BP 136/91
[2017-02-17 15:14] LABS: TROP-I INTERPRETATION NEGATIVE; TROPONIN-I 0.01 ng/mL (0.0-0.30)
[2017-02-17 15:31] VITALS: BP 146/76
[2017-02-17 19:10] VITALS: BP 160/68
[2017-02-17 21:06] LABS: TROP-I INTERPRETATION NEGATIVE; TROPONIN-I 0.01 ng/mL (0.0-0.30)
[2017-02-18] VITALS (7 sets, daily range): BP systolic 113–162; BP diastolic 51–84
[2017-02-18 09:37] LABS: HEMATOCRIT 28.5 % (38.0-50.0); MCH 29.4 PG (29.0-34.0); MCHC 31.9 G/DL (30.0-36.0); MCV 92.2 FL (86-99); MEAN PLAT.VOLUME 8.8 uM^3 (9.0-12.4); PLATELET COUNT 291 K/uL (156-360); RBC DIS.WIDTH-CV 14.4 % (11.8-14.6); RBC DIS.WIDTH-SD 48.3 % (39-53); RED BLOOD COUNT 3.09 M/uL (4.00-5.50); WHITE BLOOD COUNT 11.6 K/uL (4.1-10.2)
[2017-02-18 10:02] LABS: ALKALINE PHOSPHATASE 63 IU/L (3-129); ANION GAP 9 MEQ/L (2-14); CHLORIDE 102 MEQ/L (99-109); GFR ESTIMATE (CALCULATED) 24 mL/min/; GLUCOSE 95 mg/dL (70-99); POTASSIUM 4.6 MEQ/L (3.7-5.4); SAMPLE HEMOLYSIS CHECK 0; SAMPLE ICTERIC CHECK 0; SAMPLE LIPEMIA CHECK 0; SODIUM 138 MEQ/L (136-147); TOTAL BILIRUBIN 0.5 MG/DL (0.0-1.0); UREA NITROGEN (BUN) 40 mg/dL (9-23)
[2017-02-19 03:49] VITALS: BP 117/63
[2017-02-19 05:13] LABS: BASOPHIL COUNT 0.1 K/uL (0-0.1); EOSINOPHIL (%) 8.5 % (0-5); EOSINOPHIL COUNT 0.9 K/uL (0-0.3); HEMATOCRIT 27.8 % (38.0-50.0); IMMATURE GRANULOCYTE (%) 0.6 % (0.0-0.7); IMMATURE GRANULOCYTE COUNT 0.1 K/uL; INSTRUMENT ABS NEUTROPHIL CT 7.1 K/uL; LYMPHOCYTE COUNT 1.4 K/uL (1.0-2.8); MCH 29.5 PG (29.0-34.0); MCV 92.1 FL (86-99); MONOCYTE (%) 11.9 % (3-12); MONOCYTE COUNT 1.3 K/uL (0-0.8); NEUTROPHIL (%) 65.4 % (45-76); NEUTROPHIL COUNT 7.1 K/uL (1.8-6.4); PLATELET COUNT 268 K/uL (156-360); RBC DIS.WIDTH-CV 14.1 % (11.8-14.6); RBC DIS.WIDTH-SD 47.8 % (39-53); RED BLOOD COUNT 3.02 M/uL (4.00-5.50); WHITE BLOOD COUNT 10.9 K/uL (4.1-10.2)
[2017-02-19 05:35] LABS: ANION GAP 9 MEQ/L (2-14); CHLORIDE 103 MEQ/L (99-109); GFR ESTIMATE (CALCULATED) 25 mL/min/; GLUCOSE 104 mg/dL (70-99); POTASSIUM 4.1 MEQ/L (3.7-5.4); SAMPLE HEMOLYSIS CHECK 0; SAMPLE ICTERIC CHECK 0; SAMPLE LIPEMIA CHECK 0; SODIUM 138 MEQ/L (136-147); UREA NITROGEN (BUN) 40 mg/dL (9-23)
[2017-02-19 11:11] VITALS: BP 134/67
[2017-02-19 15:28] VITALS: BP 147/79
[2017-02-19 19:01] VITALS: BP 138/74
[2017-02-19 23:15] VITALS: BP 148/71
[2017-02-20 04:49] VITALS: BP 132/80
[2017-02-20 05:10] LABS: BASOPHIL COUNT 0.1 K/uL (0-0.1); EOSINOPHIL (%) 10.4 % (0-5); EOSINOPHIL COUNT 0.9 K/uL (0-0.3); HEMATOCRIT 26.5 % (38.0-50.0); IMMATURE GRANULOCYTE (%) 0.5 % (0.0-0.7); INSTRUMENT ABS NEUTROPHIL CT 4.8 K/uL; LYMPHOCYTE COUNT 1.7 K/uL (1.0-2.8); MCH 30.2 PG (29.0-34.0); MCHC 32.8 G/DL (30.0-36.0); MONOCYTE (%) 11.7 % (3-12); NEUTROPHIL (%) 56.4 % (45-76); NEUTROPHIL COUNT 4.8 K/uL (1.8-6.4); PLATELET COUNT 239 K/uL (156-360); RBC DIS.WIDTH-CV 14.2 % (11.8-14.6); RBC DIS.WIDTH-SD 47.7 % (39-53); RED BLOOD COUNT 2.88 M/uL (4.00-5.50); WHITE BLOOD COUNT 8.5 K/uL (4.1-10.2)
[2017-02-20 05:51] LABS: ALKALINE PHOSPHATASE 62 IU/L (3-129); ANION GAP 10 MEQ/L (2-14); CHLORIDE 106 MEQ/L (99-109); GFR ESTIMATE (CALCULATED) 26 mL/min/; GLUCOSE 93 mg/dL (70-99); SAMPLE HEMOLYSIS CHECK 0; SAMPLE ICTERIC CHECK 0; SAMPLE LIPEMIA CHECK 0; SODIUM 141 MEQ/L (136-147); UREA NITROGEN (BUN) 37 mg/dL (9-23)
[2017-02-20 05:55] LABS: TOTAL BILIRUBIN 0.3 MG/DL (0.0-1.0)
[2017-02-20 10:44] VITALS: BP 111/59
[2017-02-20] MEDS ORDERED: ROCEPHIN1 GM/50 ML IV (10:54)
[2017-02-20 12:03] VITALS: BP 144/77
[2017-02-20] MEDS ORDERED: BACTRIM,SEPT1 TABLET PO (14:51)
== END 2017-02-20 17:43 | DRG 690 ==
LOC: EME 08:43 → EDOF 10:43 → 5WEST 10:43 → ENRESERV 10:45 → 5WEST 11:46 → CANRESERV 02-18 09:15 → ENRESERV 02-18 09:15 → 5WEST 02-20 17:43
PROVIDERS: Emergency Medicine; Hospitalist; Internal Medicine
DX: N39.0 Urinary tract infection, site not specified (principal); R31.0 Gross hematuria; N18.4 Chronic kidney disease, stage 4 (severe); R07.89 Other chest pain; I25.10 Atherosclerotic heart disease of native coronary artery without angina pectoris; S37.39XD Other injury of urethra, subsequent encounter; R33.8 Other retention of urine; D50.9 Iron deficiency anemia, unspecified; D63.8 Anemia in other chronic diseases classified elsewhere; I12.9 Hypertensive chronic kidney disease with stage 1 through stage 4 chronic kidney disease, or unspecified chronic kidney disease; R33.9 Retention of urine, unspecified; K80.20 Calculus of gallbladder without cholecystitis without obstruction; K21.9 Gastro-esophageal reflux disease without esophagitis; R47.1 Dysarthria and anarthria; E03.9 Hypothyroidism, unspecified; G30.9 Alzheimer's disease, unspecified; F02.80 Dementia in other diseases classified elsewhere, unspecified severity, without behavioral disturbance, psychotic disturbance, mood disturbance, and anxiety; Z95.5 Presence of coronary angioplasty implant and graft; E78.5 Hyperlipidemia, unspecified; Z96.0 Presence of urogenital implants; I25.2 Old myocardial infarction; Z86.73 Personal history of transient ischemic attack (TIA), and cerebral infarction without residual deficits; Z87.891 Personal history of nicotine dependence; Z79.82 Long term (current) use of aspirin; B95.61 Methicillin susceptible Staphylococcus aureus infection as the cause of diseases classified elsewhere
CPT/HCPCS: 71010; 74176; 78582; 80048; 80053; 81003; 84484; 85025; 85025 91; 85027; 85379; 85610; 85730; 87077; 87086; 87147; 87186; 92610 GN; 93005; 99281; 99285; A9540; A9567; G0378; G8987 GO CJ; G8988 CI; J0692; J0696; J1644; J7050

== ENCOUNTER → 2017-03-27 | Day surgery (SDC) | payer OTHER ==
[~2017-03-27] VITALS: Ht 170.2 cm; Wt 63.2 kg
[~2017-03-27] MED LIST changes: +ASPIRIN81 M2 PO; +BACTRIM,SEPT1 TABLET PO; +NYSTOP60 GM TP; +ROCEPHIN1 GM/50 ML IV; +ULTRAM50 MG PO
[2017-03-27 10:56] LABS: POINT-OF-CARE METER ID UU13113747
[2017-03-27 11:34] VITALS: BP 170/106
== END ==
LOC: EME 08:48 → SDC 11:39
PROVIDERS: Physician Assistant
DX: T18.128A Food in esophagus causing other injury, initial encounter (principal); K22.2 Esophageal obstruction; F03.90 Unspecified dementia, unspecified severity, without behavioral disturbance, psychotic disturbance, mood disturbance, and anxiety; I25.10 Atherosclerotic heart disease of native coronary artery without angina pectoris; Z95.5 Presence of coronary angioplasty implant and graft; Z79.02 Long term (current) use of antithrombotics/antiplatelets; E03.9 Hypothyroidism, unspecified; I12.9 Hypertensive chronic kidney disease with stage 1 through stage 4 chronic kidney disease, or unspecified chronic kidney disease; N18.4 Chronic kidney disease, stage 4 (severe); Z86.73 Personal history of transient ischemic attack (TIA), and cerebral infarction without residual deficits; R00.0 Tachycardia, unspecified; K44.9 Diaphragmatic hernia without obstruction or gangrene; K80.20 Calculus of gallbladder without cholecystitis without obstruction
CPT/HCPCS: 70490; 71020; 71250; 82948; 93005; 99281; 99285; J0330; J0360; J1100; J2405

== ENCOUNTER 2017-03-28 01:01 | Inpatient (IN) | payer OTHER ==
[~2017-03-28] VITALS: Ht 170.2 cm; Wt 59.4 kg
[2017-03-28] VITALS (10 sets, daily range): BP systolic 136–180; BP diastolic 74–100
[~2017-03-28 01:01] MED LIST changes: -ASPIRIN81 M2 PO; -ULTRAM50 MG PO
[2017-03-28 01:51] LABS: EOSINOPHIL (%) 0 % (0-5); IMMATURE GRANULOCYTE (%) 0.9 % (0.0-0.7); IMMATURE GRANULOCYTE COUNT 0.1 K/uL; LYMPHOCYTE COUNT 1.5 K/uL (1.0-2.8); MCHC 31.7 G/DL (30.0-36.0); MCV 91.5 FL (86-99); MEAN PLAT.VOLUME 9.6 uM^3 (9.0-12.4); MONOCYTE (%) 2.2 % (3-12); MONOCYTE COUNT 0.4 K/uL (0-0.8); NEUTROPHIL (%) 87.6 % (45-76); PLATELET COUNT 269 K/uL (156-360); RBC DIS.WIDTH-CV 14.6 % (11.8-14.6); RBC DIS.WIDTH-SD 48.7 % (39-53); RED BLOOD COUNT 3.17 M/uL (4.00-5.50)
[2017-03-28 02:04] LABS: CHLORIDE 109 mEq/L (99-109); SODIUM 144 mEq/L (136-147)
[2017-03-28 02:06] LABS: GLUCOSE 156 mg/dL (70-99)
[2017-03-28 02:07] LABS: ANION GAP 18 MEQ/L (2-14)
[2017-03-28 02:08] LABS: TOTAL BILIRUBIN 0.5 mg/dL (0.0-1.0)
[2017-03-28 02:09] LABS: ALKALINE PHOSPHATASE 77 IU/L (3-129)
[2017-03-28 02:10] LABS: GFR ESTIMATE (CALCULATED) 17 mL/min/
[2017-03-28 02:11] LABS: UREA NITROGEN (BUN) 62 mg/dL (9-23)
[2017-03-28] MEDS ORDERED: ASPIRIN81 M2 PO (03:40)
[2017-03-28] MEDS ORDERED: PLAVIX75 MG PO (03:40)
[2017-03-28 05:02] LABS: HEMATOCRIT 24.5 % (38.0-50.0); MCV 92.5 FL (86-99)
[2017-03-28 10:30] LABS: ADD MIUA? YES; BILIRUBIN NEGATIVE; BLOOD SMALL; COLOR STRAW ((YELLOW)); GLUCOSE (STRIP) NEGATIVE; KETONES NEGATIVE; LEUKOCYTES LARGE; NITRITE NEGATIVE; PROTEIN (STRIP) 30; SPECIFIC GRAVITY 1.011 (1.000-1.030); UROBILINOGEN 0.2 MG/DL (0.2-1.0)
[2017-03-28 10:45] LABS: BACTERIA RARE /HPF; EPITHELIAL CELLS NONE SEEN /HPF; MUCUS TRACE /LPF; UCUL ADDED? YES; WHITE BLOOD CELLS 40-50 /HPF (0-5); WHITE BLOOD CELLS CLUMP FEW /HPF (0-5)
[2017-03-28] MEDS ORDERED: ULTRAM50 MG PO (12:26)
[2017-03-28 12:43] LABS: HEMATOCRIT 32.3 % (38.0-50.0)
[2017-03-28 12:44] LABS: MCV 87.8 FL (86-99)
[2017-03-28 17:05] LABS: HEMATOCRIT 31.5 % (38.0-50.0); MCV 86.3 FL (86-99)
[2017-03-28 23:23] LABS: HEMATOCRIT 29.6 % (38.0-50.0); MCV 86.3 FL (86-99)
[2017-03-29 04:35] VITALS: BP 163/78
[2017-03-29 04:47] LABS: EOSINOPHIL (%) 1.1 % (0-5); EOSINOPHIL COUNT 0.2 K/uL (0-0.3); IMMATURE GRANULOCYTE (%) 0.8 % (0.0-0.7); IMMATURE GRANULOCYTE COUNT 0.1 K/uL; INSTRUMENT ABS NEUTROPHIL CT 10.5 K/uL; LYMPHOCYTE COUNT 3.3 K/uL (1.0-2.8); MCH 29.1 PG (29.0-34.0); MCHC 33.5 G/DL (30.0-36.0); MCV 86.6 FL (86-99); MONOCYTE (%) 9.2 % (3-12); MONOCYTE COUNT 1.4 K/uL (0-0.8); NEUTROPHIL (%) 67.7 % (45-76); NEUTROPHIL COUNT 10.5 K/uL (1.8-6.4); RBC DIS.WIDTH-CV 15.8 % (11.8-14.6); RBC DIS.WIDTH-SD 49.6 % (39-53); RED BLOOD COUNT 3.58 M/uL (4.00-5.50); WHITE BLOOD COUNT 15.5 K/uL (4.1-10.2)
[2017-03-29 04:52] LABS: CHLORIDE 114 mEq/L (99-109); SODIUM 146 mEq/L (136-147)
[2017-03-29 04:56] LABS: ANION GAP 12 MEQ/L (2-14); GLUCOSE 103 mg/dL (70-99); POTASSIUM 3.8 mEq/L (3.7-5.4)
[2017-03-29 04:57] LABS: TOTAL BILIRUBIN 0.5 mg/dL (0.0-1.0)
[2017-03-29 04:58] LABS: ALKALINE PHOSPHATASE 58 IU/L (3-129)
[2017-03-29 04:59] LABS: GFR ESTIMATE (CALCULATED) 22 mL/min/
[2017-03-29 05:00] LABS: DIRECT BILIRUBIN 0.2 mg/dL (0.0-0.3); UREA NITROGEN (BUN) 92 mg/dL (9-23)
[2017-03-29 05:31] LABS: MEAN PLAT.VOLUME 9.4 uM^3 (9.0-12.4); PLAT.SUFFICIENCY ADEQUATE
[2017-03-29 05:32] LABS: PLATELET COUNT 187 K/uL (156-360)
[2017-03-29 07:22] VITALS: BP 162/87
[2017-03-29 11:16] LABS: HEMATOCRIT 29.3 % (38.0-50.0); MCV 87.7 FL (86-99)
[2017-03-29 11:27] VITALS: BP 138/86
[2017-03-29 16:11] VITALS: BP 152/88
[2017-03-29 18:45] VITALS: BP 153/76
[2017-03-29 18:59] LABS: HEMATOCRIT 30.1 % (38.0-50.0); MCV 88.3 FL (86-99)
[2017-03-29 23:20] VITALS: BP 151/77
[2017-03-29 23:43] LABS: HEMATOCRIT 29.6 % (38.0-50.0); MCV 88.6 FL (86-99)
[2017-03-30 04:45] VITALS: BP 162/82
[2017-03-30 05:19] LABS: EOSINOPHIL (%) 6.4 % (0-5); EOSINOPHIL COUNT 0.8 K/uL (0-0.3); HEMATOCRIT 29.7 % (38.0-50.0); IMMATURE GRANULOCYTE (%) 0.5 % (0.0-0.7); IMMATURE GRANULOCYTE COUNT 0.1 K/uL; INSTRUMENT ABS NEUTROPHIL CT 7.7 K/uL; LYMPHOCYTE COUNT 2.7 K/uL (1.0-2.8); MCHC 32.7 G/DL (30.0-36.0); MCV 88.7 FL (86-99); MEAN PLAT.VOLUME 9.5 uM^3 (9.0-12.4); MONOCYTE (%) 10.5 % (3-12); MONOCYTE COUNT 1.3 K/uL (0-0.8); NEUTROPHIL (%) 61.3 % (45-76); NEUTROPHIL COUNT 7.7 K/uL (1.8-6.4); PLATELET COUNT 174 K/uL (156-360); RBC DIS.WIDTH-CV 15.5 % (11.8-14.6); RED BLOOD COUNT 3.35 M/uL (4.00-5.50); WHITE BLOOD COUNT 12.6 K/uL (4.1-10.2)
[2017-03-30 06:01] LABS: ANION GAP 10 MEQ/L (2-14); CHLORIDE 112 MEQ/L (99-109); GFR ESTIMATE (CALCULATED) 24 mL/min/; GLUCOSE 87 mg/dL (70-99); POTASSIUM 3.9 MEQ/L (3.7-5.4); SAMPLE HEMOLYSIS CHECK 0; SAMPLE ICTERIC CHECK 0; SAMPLE LIPEMIA CHECK 0; SODIUM 144 MEQ/L (136-147); UREA NITROGEN (BUN) 68 mg/dL (9-23)
[2017-03-30 08:45] VITALS: BP 174/79
[2017-03-30 11:20] LABS: HEMATOCRIT 30.9 % (38.0-50.0)
[2017-03-30 11:53] VITALS: BP 160/95
[2017-03-30 16:41] VITALS: BP 150/76
== END 2017-03-30 17:18 | DRG 872 ==
LOC: EME → EDBD 01:01 → EME 01:01 → 4EAST 05:15 → EDOF 05:15 → ENRESERV 05:20 → 4EAST 07:41
PROVIDERS: Emergency Medicine; Internal Medicine; Student in an Organized Health Care Education/Training Program
PROC: 30233N1 Transfusion of Nonautologous Red Blood Cells into Peripheral Vein, Percutaneous Approach (ICD-10-PCS; principal; 2017-03-28)
DX: A41.9 Sepsis, unspecified organism (principal); K92.2 Gastrointestinal hemorrhage, unspecified; K22.2 Esophageal obstruction; E87.2 Acidosis; N17.9 Acute kidney failure, unspecified; F02.80 Dementia in other diseases classified elsewhere, unspecified severity, without behavioral disturbance, psychotic disturbance, mood disturbance, and anxiety; D64.9 Anemia, unspecified; I12.9 Hypertensive chronic kidney disease with stage 1 through stage 4 chronic kidney disease, or unspecified chronic kidney disease; E03.9 Hypothyroidism, unspecified; K21.9 Gastro-esophageal reflux disease without esophagitis; I25.10 Atherosclerotic heart disease of native coronary artery without angina pectoris; N18.4 Chronic kidney disease, stage 4 (severe); I70.0 Atherosclerosis of aorta; G30.9 Alzheimer's disease, unspecified; E78.5 Hyperlipidemia, unspecified; M41.9 Scoliosis, unspecified; N40.0 Benign prostatic hyperplasia without lower urinary tract symptoms; Z95.5 Presence of coronary angioplasty implant and graft; Z86.73 Personal history of transient ischemic attack (TIA), and cerebral infarction without residual deficits; I25.2 Old myocardial infarction
CPT/HCPCS: 70490; 71020; 71250; 74176; 80048; 80053; 80076; 81003; 82948; 83605; 85014; 85018; 85025; 86850; 86900; 86901; 86920; 87086; 93005; 99281; 99284; 99285; C9113; J0330; J0360; J0696; J1100; J1940; J2405; J7030; J7042; P9016

== ENCOUNTER 2017-05-11 11:02 | Inpatient (IN) | payer OTHER ==
[~2017-05-11] VITALS: Ht 170.2 cm; Wt 77.4 kg
[~2017-05-11 11:02] MED LIST changes: +ASPIRIN81 M2 PO; +ULTRAM50 MG PO
[2017-05-11 11:46] LABS: BASOPHIL (%) 0.2 % (0-1); EOSINOPHIL (%) 3.4 % (0-5); EOSINOPHIL COUNT 0.4 K/uL (0-0.3); HEMATOCRIT 22.1 % (38.0-50.0); IMMATURE GRANULOCYTE (%) 0.3 % (0.0-0.7); LYMPHOCYTE (%) 6.6 % (15-42); LYMPHOCYTE COUNT 0.7 K/uL (1.0-2.8); MCH 28.6 PG (29.0-34.0); MCHC 31.7 G/DL (30.0-36.0); MCV 90.2 FL (86-99); MONOCYTE (%) 9.6 % (3-12); MONOCYTE COUNT 1.1 K/uL (0-0.8); NEUTROPHIL (%) 79.9 % (45-76); PLATELET COUNT 197 K/uL (156-360); RBC DIS.WIDTH-SD 49.3 % (39-53); RED BLOOD COUNT 2.45 M/uL (4.00-5.50); WHITE BLOOD COUNT 11.3 K/uL (4.1-10.2)
[2017-05-11 11:52] LABS: INTER. NORMALIZED RATIO 1.4
[2017-05-11 11:55] LABS: PTT 28.2 SEC (25-37)
[2017-05-11 11:57] LABS: CHLORIDE 108 mEq/L (99-109); POTASSIUM 5.4 mEq/L (3.7-5.4); SODIUM 141 mEq/L (136-147)
[2017-05-11 11:58] LABS: MAGNESIUM 2.1 mg/dL (1.3-2.7)
[2017-05-11 12:03] LABS: CREATININE 5.2 mg/dL (0.6-1.3); GFR ESTIMATE (CALCULATED) 12 mL/min/ (58.99-99999)
[2017-05-11 12:04] LABS: UREA NITROGEN (BUN) 64 mg/dL (9-23)
[2017-05-11 12:07] LABS: TROP-I INTERPRETATION NEGATIVE; TROPONIN-I 0.09 ng/mL (0.0-0.30)
[2017-05-11 12:54] LABS: APPEARANCE CLOUDY ((CLEAR)); BILIRUBIN NEGATIVE; BLOOD SMALL; COLOR YELLOW ((YELLOW)); GLUCOSE (STRIP) NEGATIVE; KETONES NEGATIVE; LEUKOCYTES LARGE; NITRITE NEGATIVE; PROTEIN (STRIP) 100; UROBILINOGEN 0.2 MG/DL (0.2-1.0)
[2017-05-11 12:59] LABS: THYROTROPIN (TSH) 4.8 MIU/L (0.4-5.5)
[2017-05-11] MEDS ORDERED: LO-DOSE ASPIRIN81 M1 PO (13:02)
[2017-05-11 13:07] LABS: BACTERIA RARE /HPF; EPITHELIAL CELLS NONE SEEN /HPF; HYALINE CASTS 0-5 /LPF; MUCUS TRACE /LPF; UCUL ADDED? YES; WHITE BLOOD CELLS TNTC /HPF (0-5)
[2017-05-11] MEDS ORDERED: SYNTHROID100 MCG PO (13:07)
[2017-05-11] MEDS ORDERED: COREG6.25 M1 PO (13:08)
[2017-05-11] MEDS ORDERED: ZOSYN 3.373.375 GM/5 IV (13:10)
[2017-05-11] MEDS ORDERED: BENADRYL25 MG PO (13:11)
[2017-05-11] MEDS ORDERED: DUONEB 2.5-0.5 M3 ML IPPB (13:12)
[2017-05-11 13:19] LABS: GLUCOSE 116 mg/dL (70-99)
[2017-05-11 18:39] LABS: BASE EXCESS -3.9 mEq/L (-3 to +3); BICARBONATE 20.3 mEq/L (22-26); CARBOXY HGB 2.2 % (0-5); METHEMOGLOBIN 1.2 % (0-1.5); PCO2 32 mm Hg (35-45); PO2 95 mm Hg (80-100); pH 7.41 (7.35-7.45)
[2017-05-11 18:40] LABS: COMMENTS - BLOOD GASES A+C+; DEVICE NV; O2 FLOW 3.5 L/MIN; SITE RR; TOTAL RESP RATE 30 resp/min
[2017-05-11 18:53] LABS: IRON 23 MCG/DL (35-150); TRANSFERRIN (TIBC) 121.8 mg/dL (215-380); TRANSFERRIN SATUR. 19 % (20-55)
[2017-05-11 19:35] LABS: BASE EXCESS -2.4 mEq/L (-3 to +3); BICARBONATE 21.6 mEq/L (22-26); PCO2 34 mm Hg (35-45); pH 7.41 (7.35-7.45)
[2017-05-11 19:36] LABS: COMMENTS - BLOOD GASES C+; DEVICE NC; O2 FLOW 3 L/MIN; PO2 66 mm Hg (80-100); SITE RB; TOTAL RESP RATE 28 resp/min
[2017-05-11 19:52] LABS: CHLORIDE 108 mEq/L (99-109); SODIUM 140 mEq/L (136-147)
[2017-05-11 19:53] LABS: GLUCOSE 98 mg/dL (70-99)
[2017-05-11 19:57] LABS: CREATININE 5.2 mg/dL (0.6-1.3); GFR ESTIMATE (CALCULATED) 12 mL/min/ (58.99-99999)
[2017-05-11 19:58] LABS: UREA NITROGEN (BUN) 72 mg/dL (9-23)
[2017-05-11 20:04] LABS: TROP-I INTERPRETATION NEGATIVE; TROPONIN-I 0.07 ng/mL (0.0-0.30)
[2017-05-11 22:15] VITALS: BP 141/94
[2017-05-11 22:30] VITALS: BP 145/82
[2017-05-11 23:00] VITALS: BP 143/81
[2017-05-11] MEDS ORDERED: AUGMENTIN500 MG PO (23:17)
[2017-05-12] VITALS (19 sets, daily range): BP systolic 121–159; BP diastolic 73–100
[2017-05-12 06:34] LABS: HEMATOCRIT 21.5 % (38.0-50.0); HEMOGLOBIN 6.7 G/DL (12.5-16.6); MCH 28.3 PG (29.0-34.0); MCHC 31.2 G/DL (30.0-36.0); MCV 90.7 FL (86-99); PLATELET COUNT 204 K/uL (156-360); RBC DIS.WIDTH-SD 50.2 % (39-53); RED BLOOD COUNT 2.37 M/uL (4.00-5.50)
[2017-05-12 06:35] LABS: CHLORIDE 105 MEQ/L (99-109); CREATININE 5.1 MG/DL (0.6-1.3); GFR ESTIMATE (CALCULATED) 12 mL/min/ (58.99-99999); GLUCOSE 128 mg/dL (70-99); POTASSIUM 4.8 MEQ/L (3.7-5.4); SODIUM 141 MEQ/L (136-147); UREA NITROGEN (BUN) 78 mg/dL (9-23)
[2017-05-12 13:47] LABS: HEMATOCRIT 24.8 % (38.0-50.0); MCH 28.4 PG (29.0-34.0); MCHC 32.3 G/DL (30.0-36.0); MCV 87.9 FL (86-99); PLATELET COUNT 207 K/uL (156-360); RBC DIS.WIDTH-CV 14.8 % (11.8-14.6); RBC DIS.WIDTH-SD 47.4 % (39-53); RED BLOOD COUNT 2.82 M/uL (4.00-5.50); WHITE BLOOD COUNT 9.7 K/uL (4.1-10.2)
[2017-05-13 04:37] VITALS: BP 146/84
[2017-05-13 07:57] LABS: BASOPHIL (%) 0 % (0-1); EOSINOPHIL (%) 0 % (0-5); HEMATOCRIT 24.3 % (38.0-50.0); HEMOGLOBIN 7.8 G/DL (12.5-16.6); IMMATURE GRANULOCYTE (%) 0.8 % (0.0-0.7); LYMPHOCYTE (%) 3.8 % (15-42); LYMPHOCYTE COUNT 0.5 K/uL (1.0-2.8); MCH 28.4 PG (29.0-34.0); MCHC 32.1 G/DL (30.0-36.0); MCV 88.4 FL (86-99); MONOCYTE (%) 1.4 % (3-12); MONOCYTE COUNT 0.2 K/uL (0-0.8); NEUTROPHIL COUNT 12.5 K/uL (1.8-6.4); PLATELET COUNT 233 K/uL (156-360); RBC DIS.WIDTH-CV 15.1 % (11.8-14.6); RBC DIS.WIDTH-SD 48.5 % (39-53); RED BLOOD COUNT 2.75 M/uL (4.00-5.50); WHITE BLOOD COUNT 13.3 K/uL (4.1-10.2)
[2017-05-13 08:02] VITALS: BP 128/86
[2017-05-13 08:24] LABS: ALBUMIN 3.2 G/DL (3.2-4.8); CHLORIDE 106 MEQ/L (99-109); CREATININE 5.6 MG/DL (0.6-1.3); GFR ESTIMATE (CALCULATED) 11 mL/min/ (58.99-99999); GLUCOSE 153 mg/dL (70-99); MAGNESIUM 2.4 mg/dl (1.3-2.7); PHOSPHORUS 6.8 mg/dL (2.5-4.9); POTASSIUM 4.7 MEQ/L (3.7-5.4); SODIUM 144 MEQ/L (136-147); UREA NITROGEN (BUN) 98 mg/dL (9-23)
[2017-05-13 12:17] VITALS: BP 160/90
[2017-05-13 16:03] VITALS: BP 152/80
[2017-05-13 19:52] VITALS: BP 167/92
[2017-05-14 00:11] VITALS: BP 173/83
[2017-05-14 04:49] VITALS: BP 184/87
[2017-05-14 05:31] LABS: HEMATOCRIT 23.5 % (38.0-50.0); HEMOGLOBIN 7.8 G/DL (12.5-16.6); MCHC 33.2 G/DL (30.0-36.0); MCV 87.4 FL (86-99); PLATELET COUNT 252 K/uL (156-360); RBC DIS.WIDTH-SD 47.7 % (39-53); RED BLOOD COUNT 2.69 M/uL (4.00-5.50); WHITE BLOOD COUNT 14.8 K/uL (4.1-10.2)
[2017-05-14 06:06] LABS: ALBUMIN 3.3 G/DL (3.2-4.8); CHLORIDE 103 MEQ/L (99-109); CREATININE 5.7 MG/DL (0.6-1.3); GFR ESTIMATE (CALCULATED) 10 mL/min/ (58.99-99999); GLUCOSE 155 mg/dL (70-99); PHOSPHORUS 5.9 mg/dL (2.5-4.9); SODIUM 144 MEQ/L (136-147)
[2017-05-14 06:07] LABS: POTASSIUM 3.6 MEQ/L (3.7-5.4); UREA NITROGEN (BUN) 102 mg/dL (9-23)
[2017-05-14 07:40] VITALS: BP 164/82
[2017-05-14 16:41] VITALS: BP 122/80
[2017-05-14 20:31] VITALS: BP 158/85
[2017-05-14 23:27] VITALS: BP 177/105
[2017-05-15 03:47] VITALS: BP 163/86
[2017-05-15 06:57] LABS: ALBUMIN 3.2 G/DL (3.2-4.8); CHLORIDE 106 MEQ/L (99-109); CREATININE 5.2 MG/DL (0.6-1.3); GFR ESTIMATE (CALCULATED) 12 mL/min/ (58.99-99999); GLUCOSE 126 mg/dL (70-99); PHOSPHORUS 5.6 mg/dL (2.5-4.9); POTASSIUM 3.4 MEQ/L (3.7-5.4); SODIUM 145 MEQ/L (136-147)
[2017-05-15 07:03] LABS: UREA NITROGEN (BUN) 106 mg/dL (9-23)
[2017-05-15 08:30] VITALS: BP 148/78
[2017-05-15 11:11] VITALS: BP 159/80
[2017-05-15 15:22] VITALS: BP 172/92
[2017-05-15 20:30] VITALS: BP 169/91
[2017-05-16 00:06] VITALS: BP 168/93
[2017-05-16 00:30] VITALS: BP 145/66
[2017-05-16 07:15] LABS: HEMATOCRIT 24.4 % (38.0-50.0); MCH 28.9 PG (29.0-34.0); MCHC 32.8 G/DL (30.0-36.0); MCV 88.1 FL (86-99); NRBC (%) 0.1 /100 WBC (0-0); PLATELET COUNT 264 K/uL (156-360); RBC DIS.WIDTH-CV 14.7 % (11.8-14.6); RBC DIS.WIDTH-SD 47.2 % (39-53); RED BLOOD COUNT 2.77 M/uL (4.00-5.50); WHITE BLOOD COUNT 13.7 K/uL (4.1-10.2)
[2017-05-16 07:56] LABS: ALBUMIN 3.1 G/DL (3.2-4.8); CHLORIDE 103 MEQ/L (99-109); CREATININE 4.7 MG/DL (0.6-1.3); GFR ESTIMATE (CALCULATED) 13 mL/min/ (58.99-99999); GLUCOSE 141 mg/dL (70-99); PHOSPHORUS 5.5 mg/dL (2.5-4.9); POTASSIUM 3.4 MEQ/L (3.7-5.4); SODIUM 140 MEQ/L (136-147)
[2017-05-16 07:57] VITALS: BP 180/90
[2017-05-16 08:02] LABS: UREA NITROGEN (BUN) 104 mg/dL (9-23)
[2017-05-16 11:30] VITALS: BP 131/68
[2017-05-16 17:13] VITALS: BP 177/92
[2017-05-16 20:00] VITALS: BP 160/82
[2017-05-17 00:25] VITALS: BP 109/59
[2017-05-17 03:06] VITALS: BP 164/79
[2017-05-17 07:55] LABS: ALBUMIN 3.1 G/DL (3.2-4.8); CHLORIDE 101 MEQ/L (99-109); CREATININE 4.4 MG/DL (0.6-1.3); GFR ESTIMATE (CALCULATED) 14 mL/min/ (58.99-99999); GLUCOSE 123 mg/dL (70-99); PHOSPHORUS 4.6 mg/dL (2.5-4.9); SODIUM 138 MEQ/L (136-147); UREA NITROGEN (BUN) 99 mg/dL (9-23)
[2017-05-17 07:56] LABS: POTASSIUM 4.1 MEQ/L (3.7-5.4)
[2017-05-17 08:30] VITALS: BP 149/78
[2017-05-17 12:46] VITALS: BP 170/90
[2017-05-17 19:50] VITALS: BP 150/96
[2017-05-18 02:04] VITALS: BP 154/82
[2017-05-18 05:51] VITALS: BP 130/74
[2017-05-18 07:09] LABS: HEMATOCRIT 26.1 % (38.0-50.0); HEMOGLOBIN 8.7 G/DL (12.5-16.6); MCH 29.6 PG (29.0-34.0); MCHC 33.3 G/DL (30.0-36.0); MCV 88.8 FL (86-99); NRBC (%) 0.1 /100 WBC (0-0); PLATELET COUNT 328 K/uL (156-360); RBC DIS.WIDTH-CV 14.8 % (11.8-14.6); RBC DIS.WIDTH-SD 47.4 % (39-53); RED BLOOD COUNT 2.94 M/uL (4.00-5.50); WHITE BLOOD COUNT 20.4 K/uL (4.1-10.2)
[2017-05-18 07:29] VITALS: BP 184/76
[2017-05-18 07:34] LABS: CHLORIDE 100 MEQ/L (99-109); CREATININE 4.1 MG/DL (0.6-1.3); GFR ESTIMATE (CALCULATED) 15 mL/min/ (58.99-99999); GLUCOSE 113 mg/dL (70-99); PHOSPHORUS 5.6 mg/dL (2.5-4.9); POTASSIUM 4.1 MEQ/L (3.7-5.4); SODIUM 137 MEQ/L (136-147); UREA NITROGEN (BUN) 97 mg/dL (9-23)
[2017-05-18] MEDS ORDERED: AMOX TR-K CLV1 EAC3 PO (11:53)
[2017-05-18] MEDS ORDERED: BUMETANIDE1 MG PO (11:54)
[2017-05-18] MEDS ORDERED: CARVEDILOL12.5 MG PO (11:54)
[2017-05-18] MEDS ORDERED: APRESOLINE25 MG PO (11:54)
[2017-05-18] MEDS ORDERED: PREDNISONE10 MG PO (11:55)
== END 2017-05-18 14:24 | DRG 177 ==
LOC: EME 11:02 → EDOF 14:17 → 4WEST 14:17 → ENRESERV 14:19 → EDOF 20:22 → ENRESERV 20:57 → 4WEST 21:59 → ENRESERV 05-12 15:03 → 3EAST 05-12 22:53 → ENRESERV 05-17 14:33 → 5SOUTH 05-17 17:43
PROVIDERS: Emergency Medicine; Family Medicine; Hospitalist; Internal Medicine; Internal Medicine Critical Care Medicine
PROC: 30233N1 Transfusion of Nonautologous Red Blood Cells into Peripheral Vein, Percutaneous Approach (ICD-10-PCS; principal; 2017-05-12)
DX: J69.0 Pneumonitis due to inhalation of food and vomit (principal); J96.01 Acute respiratory failure with hypoxia; N17.0 Acute kidney failure with tubular necrosis; I13.0 Hypertensive heart and chronic kidney disease with heart failure and stage 1 through stage 4 chronic kidney disease, or unspecified chronic kidney disease; N39.0 Urinary tract infection, site not specified; N18.4 Chronic kidney disease, stage 4 (severe); J44.9 Chronic obstructive pulmonary disease, unspecified; F02.80 Dementia in other diseases classified elsewhere, unspecified severity, without behavioral disturbance, psychotic disturbance, mood disturbance, and anxiety; R47.02 Dysphasia; R13.10 Dysphagia, unspecified; I25.10 Atherosclerotic heart disease of native coronary artery without angina pectoris; N25.81 Secondary hyperparathyroidism of renal origin; D63.1 Anemia in chronic kidney disease; D50.9 Iron deficiency anemia, unspecified; E03.9 Hypothyroidism, unspecified; E87.5 Hyperkalemia; I50.9 Heart failure, unspecified; E87.6 Hypokalemia; E83.39 Other disorders of phosphorus metabolism; Y95 Nosocomial condition; E78.5 Hyperlipidemia, unspecified; G30.9 Alzheimer's disease, unspecified; K21.9 Gastro-esophageal reflux disease without esophagitis; N40.0 Benign prostatic hyperplasia without lower urinary tract symptoms; R29.6 Repeated falls; Z95.1 Presence of aortocoronary bypass graft; I25.2 Old myocardial infarction; I69.391 Dysphagia following cerebral infarction; Z91.81 History of falling; Z87.891 Personal history of nicotine dependence; Z79.899 Other long term (current) drug therapy; Z87.440 Personal history of urinary (tract) infections
CPT/HCPCS: 36600; 71045; 80048; 80048 91; 80069; 80202; 81003; 82272; 82803; 83540; 83605; 83735; 83880; 84100; 84443; 84466; 84484; 85025; 85027; 85610; 85730; 86850; 86900; 86901; 86920; 87040; 87086; 87502; 87641; 89190; 92526 GN; 92610 GN; 93005; 94640; 94640 76; 94799; 99202; 99281; 99285; J1756; J1940; J2250; J2543; J2930; J3370; J7050; J7070; J7512; P9016; S0028